=== PATIENT | female | born 1945 | race Caucasian/White ===

== ENCOUNTER 2020-03-01 09:03 | Outpatient (CLI) | payer MEDICARE, SELFPAY ==
[2020-03-01 09:54] LABS: Hemoglobin A1C 7.2 % (<5.7)
== END 2020-03-01 09:04 | disposition home or self-care (01) ==
LOC: CHSLAB 09:05
PROVIDERS: PCP Family Medicine; Visit Provider Family Medicine
DX: E11.9 Type 2 diabetes mellitus without complications (principal)
CPT/HCPCS: 36415; 83036

== ENCOUNTER 2020-06-28 09:18 | Outpatient (CLI) | payer MEDICARE, SELFPAY ==
--- NOTE | ~2020-06-28 | MM_ITS ---
EXAMINATION: MM screening [facility] BI w emilia HISTORY: Screening mammogram TECHNIQUE: Craniocaudal and mediolateral oblique 3-D tomosynthesis images were obtained and synthetic 2-D images were generated. CAD analysis was submitted and interpreted. COMPARISON: 05/23/2019, 05/19/2019, 05/01/2018 BREAST PARENCHYMAL COMPOSITION: There are scattered areas of fibroglandular density. FINDINGS: There is no evidence of suspicious mass, calcification, or architectural distortion to sugg est malignancy in either breast. There has been no suspicious interval change. IMPRESSION: 1. No mammographic evidence of malignancy. 2. Recommend routine screening mammography in one year. BI-RADS Category 1: Negative Reviewed, dictated and finalized at location A. CONSULTANT
== END 2020-06-28 09:19 | disposition home or self-care (01) ==
PROVIDERS: PCP Family Medicine; Visit Provider Family Medicine
DX: Z12.31 Encounter for screening mammogram for malignant neoplasm of breast (principal)
CPT/HCPCS: 77063; 77067

== ENCOUNTER 2020-12-06 09:15 | Outpatient (CLI) | payer MEDICARE, SELFPAY ==
[2020-12-06 09:45] LABS: Creatinine Urine 242.54 mg/dL (40-278); MALB Creatinine Ratio 8.9 mg/g (0-30); Microalbumin Urine Random 21.7 mg/L
[2020-12-06 09:48] LABS: Hemoglobin A1C 9.7 % (<5.7)
[2020-12-06 10:28] LABS: Alanine Aminotransferase 42 U/L (14-59); Alkaline Phosphatase 96 U/L (46-116); Anion Gap 10 mmol/L (8-16); Aspartate Amino Transferase 20 U/L (15-37); Bilirubin,Total 0.5 mg/dL (0.00-1.00); Blood Urea Nitrogen 20 mg/dL (7-18); Calcium 9.6 mg/dL (8.5-10.1); Carbon Dioxide 30 mmol/L (21-32); Chloride 100 mmol/L (98-108); Cholesterol 211 mg/dL (0-200); Estimated Glomerular Filt Rate 38; Glucose 215 mg/dL (70-99); HDL Direct 41 mg/dL (40-60); LDL Cholesterol Calculated 113 mg/dL (<130); Osmolality Calculated 298 mOsm/kg (285-295); Potassium 4.3 mmol/L (3.5-5.1); Sodium 140 mmol/L (136-145); Total Protein 7.5 g/dL (6.4-8.2); Triglycerides 283 mg/dL (0-150)
== END 2020-12-06 09:16 | disposition home or self-care (01) ==
LOC: CHSLAB 09:20
PROVIDERS: PCP Family Medicine; Visit Provider Family Medicine
DX: E11.9 Type 2 diabetes mellitus without complications (principal)
CPT/HCPCS: 36415; 80053; 80061; 82043; 83036

== ENCOUNTER 2021-05-18 08:03 | Outpatient (CLI) | payer MEDICARE, SELFPAY ==
--- NOTE | ~2021-05-18 | US_ITS ---
US abdomen complete EXAMINATION: US Abdomen Complete INDICATION: Left lower abdominal PROCEDURE: Realtime High Resolution abdomen ultrasound. COMPARISON: No prior studies for comparison FINDINGS: Gallbladder within normal limits. No gallstones, pericholecystic fluid, gallbladder wall t hickening or biliary dilatation. Common bile duct measures 3 mm. Liver echotexture is increased, consistent with fatty infiltration.. Pancreas within normal limits. Pancreatic tail is obscured by bowel gas. Spleen is unremarkeable. Renal echotexture is within norm al limits bilaterally without hydronephrosis, contour deforming mass. There is an echogenic focus alba suring 1.1 x 0.6 cm in the left kidney, consistent with renal stone. No hydronephrosis.. Right kidney measures 9.2 cm. Left kidney measures 9.2 cm. Visualized aspects of the aorta and IVC are within normal limits. Portal vein is patent. No sonograph ic Etienne's sign indicated by the technologist. IMPRESSION: 1: Echogenic focus in the left kidney measuring 11 x 6 mm, consistent with nonobstructing renal stone . 2: Hepatic steatosis. Reviewed, dictated and finalized at location A. AGE WINDER IMPRESSION: 1: Echogenic focus in the left kidney measuring 11 x 6 mm, consistent with nono bstructing renal stone. 2: Hepatic steatosis.
== END 2021-05-18 08:04 | disposition home or self-care (01) ==
LOC: CHSIMG 08:04
PROVIDERS: PCP Family Medicine; Visit Provider Nurse Practitioner Family
DX: R10.32 Left lower quadrant pain (principal)
CPT/HCPCS: 76700

== ENCOUNTER 2021-06-22 14:44 | Outpatient (CLI) | payer MEDICARE, SELFPAY ==
--- NOTE | ~2021-06-22 | XR_ITS ---
XR abdomen/kub 1V DATE: 06/22/2021 15:00 INDICATION: Kidney stone follow-up TECHNIQUE: AP view COMPARISON: 08/17/2011 CT abdomen pelvis FINDINGS: No calcifications are noted overlying the kidneys, ureters or urinary bladder. No evidence of bowel obstruction. The psoas shadows are intact. No visceromegaly is detected. Multilevel degenerative disc disease of the lumbar and lumbosacral spine. Bilateral hip osteoarthriti s, greater on the left. Mild osteitis pubis. IMPRESSION: No urinary tract calcifications are noted Reviewed, dictated and finalized at Location A. Reviewed, dictated and finalized at location A. LIBRARIAN
== END 2021-06-22 14:45 | disposition home or self-care (01) ==
LOC: CHSIMG 14:47
PROVIDERS: PCP Family Medicine; Visit Provider Urology
DX: N20.0 Calculus of kidney (principal)
CPT/HCPCS: 74018

== ENCOUNTER 2021-07-07 08:34 | Outpatient (CLI) | payer MEDICARE, SELFPAY ==
--- NOTE | ~2021-07-07 | CT_ITS ---
EXAMINATION: CT abdomen pelvis wo con DATE: 07/07/2021 08:58 INDICATION: Left lower quadrant and groin pain TECHNIQUE: Computed tomography (CT) of the abdomen and pelvis was performed without intravenous contr ast. Automated exposure control and iterative reconstruction technique were employed. Exam dose: 520 .51 mGy-cm total exam DLP. COMPARISON: 06/22/2021 KUB 05/18/2021 complete abdominal ultrasound examination FINDINGS: The lung bases are clear. Normal heart size. No pericardial or pleural effusion. There is hepatic steatosis. No hepatic, splenic, pancreatic, adrenal space-occupying mass lesion is e vident. The gallbladder is present. No gallbladder wall thickening or pericholecystic fluid or fat st randing. No bile duct or pancreatic duct dilatation. 1.4 cm partially exophytic anterior upper pole left renal probable cyst. No renal mass lesion is note d otherwise on this limited noncontrast examination. No urinary tract calculus or hydroureteronephros is. The urinary bladder is unremarkable. Status post hysterectomy. There is atherosclerotic calcification but normal caliber of the abdominal aorta. No intraperitoneal or retroperitoneal or pelvic mass lesion or adenopathy or ascites. There are numerous diverticula scattered throughout the left and right colon; no CT evidence of diver ticulitis Status post appendectomy. No bowel obstruction, bowel wall thickening, pneumatosis or intraperitoneal free air is evident. Small fat-containing umbilical hernia. There is severe degenerative disc disease and mild retrolisthesis at L1-2. Moderately severe degenerative disc disease at L2-3. Moderately severe degenerative disc disease at L4-5. There is prominent degenerative change at the ap ophyseal joints with associated grade 1 anterolisthesis at L4-5. Severe degenerative disc disease at L5-S1. Bilateral hip osteoarthritis. No suspicious osteolytic or osteoblastic lesions are noted. IMPRESSION: Hepatic steatosis 1.4 cm left renal cyst Diverticulosis throughout the left and right colon; no CT evidence of diverticulitis Status post appendectomy Status post hysterectomy Reviewed, dictated and finalized at Location A. Reviewed, dictated and finalized at location A. 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
[2021-07-07 09:01] LABS: Alanine Aminotransferase 47 U/L (14-59); Alkaline Phosphatase 97 U/L (46-116); Anion Gap 7 mmol/L (8-16); Aspartate Amino Transferase 21 U/L (15-37); Bilirubin,Total 0.4 mg/dL (0.00-1.00); Blood Urea Nitrogen 28 mg/dL (7-18); Calcium 9.9 mg/dL (8.5-10.1); Carbon Dioxide 31 mmol/L (21-32); Chloride 100 mmol/L (98-108); Estimated Glomerular Filt Rate 36; Glucose 103 mg/dL (70-99); Osmolality Calculated 291 mOsm/kg (285-295); Potassium 4.1 mmol/L (3.5-5.1); Sodium 138 mmol/L (136-145); Total Protein 7.9 g/dL (6.4-8.2); Uric Acid 5.8 mg/dL (2.6-6.0)
== END 2021-07-07 08:35 | disposition home or self-care (01) ==
PROVIDERS: PCP Family Medicine; Visit Provider Urology
DX: N20.0 Calculus of kidney (principal)
CPT/HCPCS: 36415; 74176; 80053; 84550

== ENCOUNTER 2021-08-01 10:09 | Outpatient (CLI) | payer MEDICARE, SELFPAY ==
--- NOTE | ~2021-08-01 | MM_ITS ---
EXAMINATION: MM screening [facility] BI w emilia HISTORY: Screening TECHNIQUE: Craniocaudal and mediolateral oblique 3-D tomosynthesis images were obtained and synthetic 2-D images were generated. CAD analysis was submitted and interpreted. COMPARISON: Comparison to multiple prior studies sequentially, with oldest reviewed study dated 03/29. BREAST PARENCHYMAL COMPOSITION: Breast composed of scattered areas of fibroglandular density FINDINGS: Stable bilateral breast calcifications and nodular densities. There is no evidence of suspi cious mass, calcification, or architectural distortion to suggest malignancy in either breast. There has been no suspicious interval change. IMPRESSION: 1. No mammographic evidence of malignancy. 2. Recommend routine screening mammography in one year. BI-RADS Category 2: Benign finding(s). Reviewed, dictated and finalized at location A. SSAYIST
== END 2021-08-01 10:10 | disposition home or self-care (01) ==
LOC: CHSIMG 10:10
PROVIDERS: PCP Family Medicine; Visit Provider Family Medicine
DX: Z12.31 Encounter for screening mammogram for malignant neoplasm of breast (principal)
CPT/HCPCS: 77063; 77067

== ENCOUNTER 2022-01-04 18:40 | Emergency (ER) | payer MEDICARE, SELFPAY ==
--- NOTE | ~2022-01-04 | XR_ITS ---
EXAM: XR hip LT 2V w AP pelvis DATE: 01/04/2022 19:16 HISTORY: LT hip pain with limited movement NKI . COMPARISON: 05/16/2011. FINDINGS: Decreased mineralization. No fracture or dislocation. No lytic or blastic lesion. Degenera tive changes in the lower lumbar spine. Moderate left hip osteoarthritis. Moderate osteitis pubis. No erosion or periosteal change. Soft tissues within normal limits. IMPRESSION: No acute osseous finding in the pelvis or left hip. Reviewed, dictated and finalized at location K.
[2022-01-04 18:45] VITALS: BP 145/78; PULSE 91; RESP 18; TEMP 36.9; O2SAT 98
--- NOTE | 2022-01-04 18:55 | ED.LOWEXIN ---
HPI - Extremity Injury (Lower) General Chief Complaint: Extremity Problem,Nontraumatic Stated Complaint: L hip pain Time Seen by Provider: 01/04/22 18:55 Source: patient History of Present Illness HPI Narrative: 76-year-old female with a history of hypertension, diabetes mellitus, dyslipidemia presents to the ER with -- left hip pain. no trauma to left hip. She has bilateral hip pains. She has taken ibuprofen, diclofenac without any improvement. Presently the patient is unable to bear weight. Onset (ago): day(s) Injury: Left: hip Severity: severe Relieving factors: immobilization Exacerbating factors: movement Related Data Allergies Allergy/AdvReac Type Severity Reaction Status Date / Time metronidazole Allergy Unknown Unknown Verified 12/05/21 13:55 pioglitazone [From Actos] AdvReac Severe Swelling Verified 12/05/21 13:55 Review of Systems Review of Systems: All systems reviewed & are unremarkable except as noted in HPI and below Constitutional: Constitutional: Reports as per HPI and Reports no additional constitutional complaints Eyes: Eyes: Reports as per HPI and Reports no additional eye complaints ENT: Reports system reviewed and no additional complaints, except as documented and Reports as per HPI Cardiovascular: Cardiovascular: Reports as per HPI and Reports no additional cardiovascular complaints Respiratory: Respiratory: Reports as per HPI and Reports no additional respiratory complaints Gastrointestinal: Gastrointestinal: Reports as per HPI and Reports no additional gastrointestinal complaints Genitourinary: Genitourinary: Reports no additional female genitourinary complaints and Reports as per HPI Musculoskeletal: Musculoskeletal: Reports no additional musculoskeletal complaints and Reports as per HPI Comments: chronic bilateral hip pain. Currently she has left hip pain Integumentary/Breasts: Skin/Breast: Reports system reviewed and no additional complaints, except as docu and Reports as per HPI Neurologic: Reports system reviewed and no additional complaints, except as documented and Reports as per HPI Psychiatric: Psychiatric: Reports no additional psychiatric complaints and Reports as per HPI Endocrine: Endocrine: Reports no additional endocrine complaints and Reports as per HPI Hematologic/Lymphatic: Hematologic/Lymphatic: Reports no additional hematologic/lymphatic complaints and Reports as per HPI Allergic/Immunologic: Allergic/Immunologic: Reports no additional allergic/immunologic complaints and Reports as per HPI PMF Past Medical History Medical History (Updated 01/04/22 @ 19:38 by Beau Correa MD) Arthritis DM2 (diabetes mellitus, type 2) Hyperlipidemia Hypertension Overweight Surgical History Surgical History History of appendectomy History of hysterectomy Age 43 Family History Family History Mother Hypertension Diabetes mellitus CHF (congestive heart failure) Father , Age 69 Pancreatitis Social History Social History Smoking status: Never smoker Alcohol intake: never Substance use: never Additional living arrangements comments: . No children. Additional occupation/education comments: Prior Occupation: [employer] Exam Const: General: healthy appearing and no acute distress Nutritional Appearance: well nourished Orientation/consciousness: patient oriented x3 Limitations: no limitations HENMT: Head: normal to inspection Ears: external ears normal General nose exam: Normal external nose present Face and sinus: normal facial exam Mouth: Yes Normal oral and palatal mucosa present Throat: posterior oropharynx normal Eyes: Conjunctivae: conjunctivae normal Pupils: Equal, round and reactive pupils present EOM: EOMs intact bilaterally Direct Ophthalmoscopy
--- NOTE | 2022-01-04 19:08 | PC.NURSE ---
pt report to obinna donnelly. no questions or concerns
[2022-01-04] MEDS: ONDANSETRON HCL ODT 4 MG TABLET PO (19:44)
[2022-01-04] MEDS: HYDROmorphone HCL INJ (*CRX) 2 MG/ML VIAL 1 MG SUB-Q (19:44)
[2022-01-04] MEDS: methylPREDNISolone ACETATE 40 MG/ML VIAL IM (19:45)
[2022-01-04 20:00] VITALS: BP 109/80; PULSE 87; RESP 18; O2SAT 97
== END 2022-01-04 20:02 | disposition home or self-care (01) ==
PROVIDERS: Emergency Provider Internal Medicine Critical Care Medicine; PCP Family Medicine
DX: M16.12 Unilateral primary osteoarthritis, left hip (principal)
CPT/HCPCS: 73502; 96372; 99284; A9270; J1030; J1170

== ENCOUNTER 2022-01-17 09:23 | Outpatient (CLI) | payer MEDICARE, SELFPAY ==
[2022-01-17 10:08] LABS: Alanine Aminotransferase 57 U/L (14-59); Albumin Level 3.6 g/dL (3.4-5.0); Alkaline Phosphatase 232 U/L (46-116); Anion Gap 10 mmol/L (8-16); Aspartate Amino Transferase 26 U/L (15-37); Bilirubin,Total 0.5 mg/dL (0.00-1.00); Blood Urea Nitrogen 38 mg/dL (7-18); Calcium 9.1 mg/dL (8.5-10.1); Carbon Dioxide 25 mmol/L (21-32); Chloride 101 mmol/L (98-108); Estimated Glomerular Filt Rate 37; Glucose 105 mg/dL (70-99); Osmolality Calculated 291 mOsm/kg (285-295); Potassium 4.1 mmol/L (3.5-5.1); Sodium 136 mmol/L (136-145)
== END 2022-01-17 09:24 | disposition home or self-care (01) ==
LOC: CHSLAB 09:25
PROVIDERS: PCP Family Medicine; Visit Provider Nurse Practitioner Family
DX: E11.9 Type 2 diabetes mellitus without complications (principal); I10 Essential (primary) hypertension
CPT/HCPCS: 36415; 80053

== ENCOUNTER 2022-01-23 08:18 | Outpatient (CLI) | payer MEDICARE, SELFPAY ==
[2022-01-23 08:46] LABS: Alanine Aminotransferase 48 U/L (14-59); Albumin Level 3.8 g/dL (3.4-5.0); Alkaline Phosphatase 262 U/L (46-116); Anion Gap 7 mmol/L (8-16); Aspartate Amino Transferase 24 U/L (15-37); Bilirubin,Total 0.3 mg/dL (0.00-1.00); Blood Urea Nitrogen 16 mg/dL (7-18); Calcium 9.4 mg/dL (8.5-10.1); Carbon Dioxide 27 mmol/L (21-32); Chloride 101 mmol/L (98-108); Estimated Glomerular Filt Rate 40; Glucose 115 mg/dL (70-99); Osmolality Calculated 282 mOsm/kg (285-295); Potassium 4.1 mmol/L (3.5-5.1); Sodium 135 mmol/L (136-145); Total Protein 7.2 g/dL (6.4-8.2)
== END 2022-01-23 08:19 | disposition home or self-care (01) ==
LOC: CHSLAB 08:20
PROVIDERS: PCP Family Medicine; Visit Provider Family Medicine
DX: E11.9 Type 2 diabetes mellitus without complications (principal)
CPT/HCPCS: 36415; 80053

== ENCOUNTER 2022-02-09 09:53 | Outpatient (CLI) | payer MEDICARE, SELFPAY ==
--- NOTE | 2022-02-09 10:48 | ECG_ITS ---
Measurements Intervals [place] Rate: 82 P: 53 NH: 123 QRS: -55 QRSD: 118 T: 12 QT: 366 QTc: 429 Interpretive Statements SINUS RHYTHM INDETERMINATE AXIS LOW QRS VOLTAGE IN PRECORDIAL LEADS RIGHT BUNDLE BRANCH BLOCK LEFT ANTERIOR FASCICULAR BLOCK BASELINE ARTIFACT- I, II, III, AVR, AVL, AVF, V4-V5 ABNORMAL ECG NO PREVIOUS ECG AVAILABLE FOR COMPARISON Electronically Signed On 02-09-2022 11:12:35 CDT by Home Alcaraz D.O.
[2022-02-09 11:10] LABS: Appearance Urine Cloudy (Clear); Bilirubin Urine Negative (Negative); Blood Urine 2+ (Negative); Color Urine Yellow (Yellow); Glucose Urine UA Negative (Negative); Ketones Urine Negative (Negative); Leukocyte Esterase Ur 2+ LEU/UL (Negative); Nitrate Urine Negative (Negative); Protein Urine 2+ mg/dL (Negative); Specific Grav Ur 1.025 (1.001-1.035); Urobilinogen Urine 0.2 mg/dL (<2.0); pH Urine 5.5 (5.0-9.0)
[2022-02-09 11:10] LABS: Basophils Absolute Auto 0.1 K/mm3 (0.0-0.1); Basophils Percent Auto 0.7 % (0.2-1.2); Eosinophils Absolute Auto 0.1 K/mm3 (0-0.3); Hematocrit 41.1 % (37.0-47.0); Hemoglobin 13.6 g/dL (12.0-15.0); Immature Granulocyte Absolute 0.03 K/mm3 (0.00-0.031); Immature Granulocyte Percent A 0.4 % (0-0.5); Lymphocytes Percent Auto 11.3 % (18.3-44.2); Mean Corpuscular HGB Conc 33.1 g/dl (32-36); Mean Corpuscular Hemoglobin 28.9 pg (26-34); Mean Corpuscular Volume 87.4 fl (80-100); Mean Platelet Volume 8.9 fl (7.4-10.4); Monocytes Absolute Auto 0.4 K/mm3 (0.1-0.6); Monocytes Percent Auto 6.2 % (2.6-8.5); Neutrophils Absolute Auto 5.7 K/mm3 (1.3-6.7); Neutrophils Percent Auto 80.4 % (45.5-73.1); Platelet Count Result 306 k/mm3 (150-375); Red Cell Distribution Width 13.2 % (11.5-14.5); White Blood Count 7.1 K/mm3 (4.5-10.0)
[2022-02-09 11:15] LABS: Mucus Urine Rare /lpf; RBC Urine 21-50 /hpf (0-2); Squamous Epithelial Cell Urine Moderate /hpf (Few); WBC Urine >75 /hpf
[2022-02-09 11:21] LABS: Prothrombin Time 12.8 Seconds (11.1-14.7)
[2022-02-09 11:22] LABS: Partial Thromboplastin Time 28.8 SECONDS (22.3-36.8)
[2022-02-09 11:35] LABS: Add Urine Microscopic? YES
[2022-02-09 12:10] LABS: Urine Cotinine NEGATIVE
== END 2022-02-09 09:54 | disposition home or self-care (01) ==
LOC: ANHSURGERY 10:01
PROVIDERS: PCP Family Medicine; Visit Provider Orthopaedic Surgery
DX: Z01.818 Encounter for other preprocedural examination (principal); M16.12 Unilateral primary osteoarthritis, left hip; R94.31 Abnormal electrocardiogram [ECG] [EKG]
CPT/HCPCS: 80307; 81001; 85025; 85610; 85730; 86850; 86900; 86901; 87077; 87081; 87086; 87186; 93005

== ENCOUNTER 2022-02-15 15:15 | Inpatient (IN) | payer MEDICARE, SELFPAY ==
[2022-02-09 10:07] VITALS: BMI 30.4
--- NOTE | 2022-02-09 10:26 | PC.NURSE ---
Report to the Outpatient Waiting Room, entrance under the green pavilion located off [facility], at time __0600 on date __02/14/22 . OR Time: __729 . Time changes happen often and if your time is changed the preop area will call you the afternoon before. - You and your visitor will be asked to self-screen and do not enter if you have any COVID symptoms. - Only one visitor and NO children visitors are allowed at this time. - The patient visitor is requested to leave or wait in car when not with patient due to restrictions. - A mask is required within the hospital. Patients may have clear liquids (water, carbonated beverages, clear teas, apple juice) until 3 hours prior to surgery with a maximum of 20 ounces. - No food from midnight until time of surgery - Infants may have breast milk until 4 hours before surgery, formula 6 hours prior to surgery. - Children will be allowed to drink immediately following surgery. If applicable, please bring a bottle or sippy cup to assist with drinking. Juice, water, soda, and popsicles are readily available. For infants on formula, please bring formula the day of surgery. Pacifiers are allowed. Take the following medications with a SIP of water the morning of surgery: ____NONE Medications to discontinue per physician NONE Date to take last dose Please no make-up, nail hungarian, hairspray, perfume, deodorant, or body powder the day of surgery. No jewelry (including any body piercings) or valuables the day of surgery, leave them at home. Please take a shower or bath the night before, or the morning of, surgery with an antibacterial soap. Wear comfortable, loose fitting clothing. Children are encouraged to wear pajamas. - Jewelry must be removed prior to entering the operating room. Rings and piercings that are not removed may be cut off. - The hospital will not accept responsibility for valuables. - Please leave all valuables, including medications, at home the day of surgery. If you are going home after surgery, a licensed commercial truck driver must drive you home. - NO public transportation without another adult. - We recommend that an adult stay with you for 24 hours following discharge. - We also recommend that you do not drive, make important decision, drink alcoholic beverages, or take any drugs that were not prescribed by your health care provider for at least 24 hours after your discharge time. For Pediatric surgeries, we recommend two adults accompany the child home (only one inside the building at this time). Follow any additional instructions given to you from your surgeon. If you or anyone in your household have experienced Covid symptoms in the past week, please notify your surgeon or the nurse liaison at the phone number below for possible testing. VERBAL AND WRITTEN instructions given to _PATIENT AND SISTER IN LAW VIKA and asked if any additional questions and then verbalized understanding. Patient advised to call surgeon office or pre surgery nurse liaison [phone] if any additional questions.
[2022-02-09 10:52] VITALS: BP 130/70; PULSE 89; RESP 18; TEMP 36.8; O2SAT 99
--- NOTE | 2022-02-13 14:25 | P.PNAN_ITS ---
Anes - Initial Pre Proc Eval Procedure: Operation Date: 02/14/22 07:30 Proposed Procedures p Left Total Hip Arthroplasty - Ismael Calero MD Date/Time: 02/13/22 14:25 Surgeon: Ismael Calero MD Pre Op Diagnosis: left hip DJD Patient Data Age: 76 Gender: F Height: 1.55 m Weight: 73.2 kg Last Vital Signs Temp 98.3 F 02/09/22 10:52 Pulse 89 02/09/22 10:52 Resp 18 02/09/22 10:52 BP 130/70 02/09/22 10:52 Pulse Ox 99 02/09/22 10:52 O2 Del Method Room Air 02/09/22 10:52 Allergies Allergy/AdvReac Type Severity Reaction Status Date / Time metronidazole Allergy Unknown Unknown Verified 02/09/22 10:08 pioglitazone [From Actos] AdvReac Severe Swelling Verified 02/09/22 10:08 Home Medications Medication Instructions Recorded Confirmed Type lisinopril 20 mg tablet See Rx Instructions .Route 08/15/21 02/09/22 Rx .COMPLEX #90 tabs metformin 1,000 mg tablet 1,000 mg PO BID #180 tabs 09/27/21 02/09/22 Rx acetaminophen 500 mg tablet 500 mg PO Q6H PRN Pain 02/09/22 02/09/22 History (Tylenol Extra Strength) aluminum-mag hydroxide-simethicone 10 ml PO PRN PRN Heartburn 02/09/22 02/09/22 History 200 mg-200 mg-20 mg/5 mL oral susp levofloxacin 500 mg tablet 500 mg PO DAILY 10 days #10 tabs 02/13/22 Rx Patient hx anesthesia problems: none Family hx anesthesia problems: none Results Review: All pre-operative results and documents have been reviewed as part of the pre- operative evaluation. [facility] Past Medical History Medical History Arthritis DM2 (diabetes mellitus, type 2) Hyperlipidemia Hypertension Overweight Surgical History Surgical History History of appendectomy History of hysterectomy Age 43 Family History Family History Mother Hypertension Diabetes mellitus CHF (congestive heart failure) Father , Age 69 Pancreatitis Social History Social History Smoking status: Never smoker Additional smoking assessment comments: DENIES ANY FORM OF TOBACCO USE Alcohol intake: never Substance use: never Living arrangements: alone Additional living arrangements comments: . No children. Additional occupation/education comments: Prior Occupation: [employer] Spiritual care concerns: No Anes - Eval Final PreProcedure Day of Procedure 02/13/22 14:25 Patient weight: obese Heart: regular rate and rhythm Lungs: clear to auscultation Airway: Mallampati scale class II Neurological: alert and oriented Last oral intake: >/= 8 hours ASA classification: III Emergent: no Anesthetic plan: proceed Anesthesia type and monitoring: general ETT and standard monitoring Results Review: All pre-operative results and documents have been reviewed as part of the pre- operative evaluation. Informed Consent: The patient's anesthetic plan and its attendant risks and benefits were discussed with the patient/family/POA. Questions were solicited and answers provided to the satisfaction of the patient/family/POA.
[2022-02-14] VITALS (17 sets, daily range): BP systolic 107–153; BP diastolic 50–74; PULSE 79–99; RESP 16–20; TEMP 35.6–36.7; O2SAT 94–100
[2022-02-14] MEDS: ACETAMINOPHEN 500 MG TABLET 1000 MG PO (06:33)
[2022-02-14] MEDS: TRANEXAMIC ACID 1,000MG/ISO100 1,000 MG/100 ML BAG 200 MG IVPB (06:36)
[2022-02-14] MEDS: LACTATED RINGERS 1,000 ML 30 ML IV CONT ×2 (06:40→10:18)
[2022-02-14 06:55] LABS: Glucose Point of Care 90 mg/dl (65-105)
--- NOTE | 2022-02-14 07:14 | WPDHPUPDATE1 ---
History and Physical Update Update Date/Time: 02/14/22 07:14 History and Physical has been reviewed, including an updated exam of the patient. There are NO changes in the patient's condition. Risks, benefits, and alternatives have been discussed and questions answered. Patient agrees to proceed with procedure.
[2022-02-14] MEDS: ceFAZolin 2 GM/D5W 50 ML 2 GM/50 ML BAG IVPB ×2 (07:27→16:43)
[2022-02-14] MEDS: TRANEXAMIC ACID 1,000 MG/10 ML AMPUL 1000 MG IV PUSH (09:55)
[2022-02-14 10:21] LABS: Glucose Point of Care 136 mg/dl (65-105)
--- NOTE | 2022-02-14 10:31 | W.PM.PROC2 ---
Procedure Note - Detailed Date of Procedure 02/14/22 Pre-op Diagnosis left hip DJD Post-op Diagnosis Same Procedure Performed L NEMO Surgeon Ismael Calero MD Anesthesia General Description of Procedure THE PATIENT WAS TAKEN TO THE OPERATING ROOM IN STABLE CONDITION AND WAS PLACED IN THE LATERAL DECUBITUS AND THE LEFT LOWER EXTREMITY WAS PREPPED AND DRAPED IN THE STERILE FASHION. INCISION WAS MADE IN THE POSTERIOR LATERAL SIDE OF THE HIP, DOWN TO THE FASCIA LAYER. THE FASCIA WAS INCISED. THE HIP WAS EXPOSED. THE SHORT EXTERNAL ROTATORS WERE EXPOSED. THE SCIATIC NERVE WAS IDENTIFIED. INCISION WAS MADE THROUGH THE SHORT EXTERNAL ROTATORS AND THE CAPSULE OF THE HIP JOINT. THE HIP WAS DISLOCATED. AN OSTEOTOMY WAS MADE TO THE FEMORAL NECK ABOUT 1 CM PROXIMAL TO THE LESSER TROCHANTER. THE ACETABULUM WAS EXPOSED. THERE WAS SEVERE DJD SEEN. BEGINNING WITH A 44 REAMER THE ACETABULUM WAS REAMED TO 49 MM. A 50 MM TRIAL WAS PLACED IN 35 DEG OF ABDUCTION AND ANTEVERSION WAS IN ALIGNMENT WITH THE TRANS ACETABULAR LIGAMENT. THE FIT WAS EXCELLENT. THE TRIAL WAS REMOVED. A 50 MM BIOMET G7 COMPONENT WAS THEN TAPPED IN TO PLACE IN 35 DEG OF ABDUCTION AND ANTEVERSION IN ALIGNMENT WITH THE TRANSVERSE ACETABULAR LIGAMENT. 2 SCREWS WERE PLACED. THE COMPONENT WAS VERY STABLE. THE ACETABULAR LINER WAS PLACED AND CHECKED FOR STABILITY. NEXT THE FEMUR WAS PREPARED WITH INITIAL CANAL FINDER THEN SEQUENTIAL BROACHING WITH A TAPERLOC HIP SYSTEM, UNTIL A 9 BROACH FIT WELL IN 15 OF ANTEVERSION. A -3 HIGH OFFSET NECK WITH 36 MM HEAD TRIAL WAS PLACED. THE SHUCK TEST WAS EXCELLENT AND THE STABILITY IN FLEXION AND ROTATION WAS EXCELLENT. LEG LENGTHS WERE GROSSLY EQUAL. TRIALS WERE REMOVED. A BIOMET TAPERLOC 9 STEM WAS PLACED WITH A HIGH OFFSET NECK THE FIT WAS EXCELLENT IN 15 DEG OF ANTEVERSION. A -3 CERAMIC 36 MM FEMORAL CERAMIC HEAD WAS PLACED. THE HIP WAS TRIALED AND THE STABILITY WAS EXCELLENT WERE THE LEG LENGTHS AND THE SHUCK TEST. THE WOUND WAS IRRIGATED WITH STERILE BETADINE AND WATER FOR 3 MIN. THEN WASHED AGAIN. THE CAPSULE AND THE EXTERNAL ROTATORS WERE APPROXIMATED WITH NUMBER 1 VICRYL. THE FASCIA WITH No 2 QUIL AND THE SUB CUTANEOUS LAYER WITH 2-0 ABSORBABLE SUTURE WITH A RUNNING 3-0 SUBCUTICULAR LAYER WELL. DERMABOND WAS PLACED AND STERILE DRESSING WAS APPLIED. PATIENT WAS PLACED BACK ON TO THE SUPINE POSITION AND WAS EXTUBATED Estimated Blood Loss -100.0 Complications No immediate complications Condition Stable Disposition PACU
--- NOTE | 2022-02-14 11:22 | SUR.PHASEI ---
1120 PT MEETS ANESTHESIA DISCHARGE CRITERIA. POST OP ROOM NOT AVAILABLE- ON HOLD IN THE PACU.
--- NOTE | 2022-02-14 12:40 | ADMGEN ---
This patient, Marcy Peña, was admitted to 3 [facility] Surg Room 319-01 at 1235. Patient/family oriented to hospital policies and general routines including ID bracelet, bed and alarms, visiting hours, pain management, procedures, bathroom and other care routines, personal items, smoking policy, room service/diet, and visiting hours. Information on how to activate the Rapid Response Team has been discussed. Patient/Family are encouraged to report perceived risks to care and to ask questions if they do not understand what they are told or what they should do.
[2022-02-14] MEDS: SODIUM CHLORIDE 0.9% IV 1,000 ML 125 ML IV CONT ×2 (12:54→20:25)
[2022-02-14] MEDS: ONDANSETRON INJ 4 MG/2 ML VIAL IV PUSH ×2 (12:59→17:26)
[2022-02-14] MEDS: lisinopriL 20 MG TABLET BY MOUTH (14:56)
[2022-02-14 16:20] LABS: Glucose Point of Care 237 mg/dl (65-105)
[2022-02-14] MEDS: SENNA/DOCUSATE SODIUM TABLET 2 TAB PO (16:42)
[2022-02-14] MEDS: metFORMIN HCL 500 MG TABLET 1000 MG PO (16:42)
--- NOTE | 2022-02-14 17:28 | PC.NURSE ---
this nurse told pt that accu check was a little high. pt did have a clear soda from therapy due to have nausea. pt states i do not take insulin and i do not want it. pt did not take metformin this morning due to surgery, will resume per orders.
[2022-02-14 20:25] LABS: Glucose Point of Care 182 mg/dl (65-105)
[2022-02-15] VITALS (8 sets, daily range): BP systolic 105–135; BP diastolic 58–78; PULSE 78–91; RESP 16–18; TEMP 35.9–36.9; O2SAT 100
--- NOTE | ~2022-02-15 | XR_ITS ---
XR hip LT 1V DATE: 02/14/2022 10:29 INDICATION: Left total hip replacement, postoperative examination TECHNIQUE: Single portable AP postoperative view COMPARISON: None FINDINGS: Status post resection of left femoral head and neck and left total hip arthroplasty. No fracture or dislocation, periosteal reaction or bone destruction. There is slight expected postope rative subcutaneous emphysema. No abnormal radiopaque foreign bodies are noted. There is mild rotatory dextroscoliosis and multilevel degenerative disc disease of the lumbar spine. IMPRESSION: Postoperative unremarkable radiographic examination following left total hip arthroplasty Reviewed, dictated and finalized at location B.
--- NOTE | ~2022-02-15 | US_ITS ---
EXAMINATION: US renal BI DATE: 02/15/2022 16:30 INDICATION: intrinsic renal disease w/ CKD stage 3 TECHNIQUE: Multiple grayscale and Doppler ultrasound images of the kidneys were obtained. COMPARISON: 05/18/21, CT 07/07/21. FINDINGS: Echogenic liver. The right kidney measures 10.1 x 5.1 x 4.3 cm. The left kidney measures 8.2 x 4.0 x 4.1 cm. The kidneys demonstrate normal parenchymal echogenicity. Mild cortical thinning and lobulatio n. Anechoic, circumscribed left upper pole cyst. Echogenic shadowing foci in the right midpole with c linical artifact, likely stone. There is no hydronephrosis. The bladder is normal. IMPRESSION: Mild cortical atrophy. Nonobstructive right midpole nephroliths. Simple left upper pole cyst. Echogen ic liver, most commonly due to steatosis but also can be seen with hepatitis and fibrosis. Reviewed, dictated and finalized at location K. IMPRESSION: Mild cortical atrophy. Nonobstructive right midpole nephroliths. Simple left up per pole cyst. Echogenic liver, most commonly due to steatosis but also can be seen with hepatitis and fibrosis.
[2022-02-15] MEDS: ceFAZolin 2 GM/D5W 50 ML 2 GM/50 ML BAG IVPB ×2 (00:05→08:32)
[2022-02-15] MEDS: ONDANSETRON INJ 4 MG/2 ML VIAL IV PUSH (02:11)
[2022-02-15] MEDS: SODIUM CHLORIDE 0.9% IV 1,000 ML 125 ML IV CONT (05:16)
[2022-02-15 06:47] LABS: Basophils Percent Auto 0.1 % (0.2-1.2); Hemoglobin 9.7 g/dL (12.0-15.0); Immature Granulocyte Absolute 0.06 K/mm3 (0.00-0.031); Immature Granulocyte Percent A 0.5 % (0-0.5); Lymphocytes Absolute Auto 0.36 K/mm3 (0.9-3.2); Mean Corpuscular HGB Conc 33.4 g/dl (32-36); Mean Corpuscular Volume 86.8 fl (80-100); Mean Platelet Volume 9.3 fl (7.4-10.4); Monocytes Absolute Auto 0.8 K/mm3 (0.1-0.6); Monocytes Percent Auto 6.4 % (2.6-8.5); Neutrophils Absolute Auto 10.8 K/mm3 (1.3-6.7); Platelet Count Result 221 k/mm3 (150-375); Red Blood Count 3.34 M/mm3 (4.2-5.4); Red Cell Distribution Width 13.3 % (11.5-14.5)
[2022-02-15 07:02] LABS: Anion Gap 8 mmol/L (8-16); Blood Urea Nitrogen 26 mg/dL (7-17); Calcium 8.4 mg/dL (8.4-10.2); Carbon Dioxide 23 mmol/L (22-30); Chloride 102 mmol/L (98-107); Estimated CRCL calculation 20 ml/min; Estimated Glomerular Filt Rate 24; Glucose 108 mg/dL (65-110); Potassium 5.5 mmol/L (3.4-5.0); Sodium 133 mmol/L (137-145)
--- NOTE | 2022-02-15 07:36 | P.PNAN_ITS ---
Anes - Prog Note Post-Op Date/Time: 02/15/22 07:36 Cardiovascular status: normal Respiratory status: normal Airway patency: baseline Vital Signs: Last Vital Signs Temp 96.9 F L 02/15/22 04:00 Pulse 82 02/15/22 04:00 Resp 17 02/15/22 04:00 BP 135/63 02/15/22 04:00 Pulse Ox 100 02/15/22 04:00 O2 Del Method Room Air 02/14/22 13:50 O2 Flow Rate 6 02/14/22 10:45 Pain Score (VAS): 1-2 I/O: Intake & Output 02/14/22 02/14/22 02/15/22 15:59 23:59 07:59 Intake Total 300 1720 1150 Output Total 600 Balance 300 1720 550 Laboratory Tests 02/15/22 06:21 02/15/22 06:21 02/14/22 02/14/22 02/14/22 10:18 16:06 20:20 WBC RBC Hgb Hct MCV MCH MCHC RDW Plt Count MPV Immature Gran % (Auto) Neut % (Auto) Lymph % (Auto) [place] % (Auto) Eos % (Auto) Baso % (Auto) Lymph # (Auto) [place] # (Auto) Eos # (Auto) Baso # (Auto) Abs Immat Gran (auto) Absolute Neuts (auto) Absolute Nucleated RBC Nucleated RBC % Sodium Potassium Chloride Carbon Dioxide Anion Gap BUN Creatinine Estim Creat Clear Calc Estimated GFR Glucose POC Capillary Glucose 136 H 237 H 182 H Calcium 02/15/22 02/15/22 06:21 06:21 WBC 12.0 H RBC 3.34 L Hgb 9.7 L D Hct 29.0 L MCV 86.8 MCH 29.0 MCHC 33.4 RDW 13.3 Plt Count 221 MPV 9.3 Immature Gran % (Auto) 0.5 Neut % (Auto) 90.0 H Lymph % (Auto) 3.0 L [place] % (Auto) 6.4 Eos % (Auto) 0.0 Baso % (Auto) 0.1 L Lymph # (Auto) 0.36 L [place] # (Auto) 0.8 H Eos # (Auto) 0.0 Baso # (Auto) 0.0 Abs Immat Gran (auto) 0.06 H Absolute Neuts (auto) 10.8 H Absolute Nucleated RBC 0.0 Nucleated RBC % 0.0 Sodium 133 L Potassium 5.5 H Chloride 102 Carbon Dioxide 23 Anion Gap 8 BUN 26 H Creatinine 2.00 H Estim Creat Clear Calc 20 Estimated GFR 24 L Glucose 108 POC Capillary Glucose Calcium 8.4 Patient Feedback: Patient satisfied with anesthetic care.
[2022-02-15 08:27] LABS: Glucose Point of Care 106 mg/dl (65-105)
[2022-02-15] MEDS: lisinopriL 20 MG TABLET BY MOUTH (08:35)
[2022-02-15] MEDS: metFORMIN HCL 500 MG TABLET 1000 MG PO ×2 (08:36→17:02)
[2022-02-15] MEDS: levoFLOXacin 500 MG TABLET PO (08:36)
[2022-02-15] MEDS: CELECOXIB 200 MG CAPSULE PO (08:36)
[2022-02-15] MEDS: polyethylene glycoL 3350 17 GM POWD.PACK PO (08:37)
[2022-02-15] MEDS: SENNA/DOCUSATE SODIUM TABLET 2 TAB PO ×2 (08:37→17:01)
[2022-02-15] MEDS: HYDROcodone/acetaminophen (*CRX) 7.5-325 MG TABLET 1 TAB PO (08:50)
[2022-02-15] MEDS: ASPIRIN 325 MG ENTERIC TABLET 650 MG PO (11:01)
[2022-02-15 11:47] LABS: Glucose Point of Care 113 mg/dl (65-105)
--- NOTE | 2022-02-15 13:52 | PM.PNORT ---
Progress Note: A&P Assessment and Plan (1) S/P total hip arthroplasty: Code(s): Z96.649 - Presence of unspecified artificial hip joint Status: Acute Assessment and Plan: POD 1 WITH SOME SLOW PROGRESS WITH PT. SHE HAS INCREASING BUN/CR AND K+. RECOMMEND INTERNAL MEDICINE CONSULT. POSSIBLE DC TOMORROW Subjective Subjective Date/Time Seen: 02/15/22 13:52 POD 1 DOING WELL. SHE IS HAVING SLOW PROGRESS WITH PT. NO CALF PAIN Exam Extrem: Other: VSS AFEBRILE DRESSING DRY NV INTACT NEG HOMANS SIGN, CALF SOFT NON TENDER Objective Data Vital Signs Vital Signs: Vital Signs - 24 hr 02/14/22 14:30 02/14/22 16:01 02/14/22 20:01 Temperature 35.7 C L 35.6 C L 36.1 C L Pulse Rate 92 91 79 Respiratory Rate 16 18 18 Blood Pressure 133/62 118/57 L 109/59 L Pulse Oximetry 97 99 99 Oxygen Delivery 02/15/22 00:00 02/15/22 04:00 02/15/22 08:30 Temperature 35.9 C L 36.1 C L 36.1 C L Pulse Rate 83 82 91 Respiratory Rate 18 17 16 Blood Pressure 133/65 135/63 120/68 Pulse Oximetry 100 100 100 Oxygen Delivery 02/15/22 08:35 Temperature Pulse Rate Respiratory Rate Blood Pressure Pulse Oximetry Oxygen Delivery Room Air Intake/Output Intake/Output: Intake & Output 02/12/22 02/13/22 02/14/22 02/15/22 23:59 23:59 23:59 23:59 Intake Total 2019 1929 Output Total 600 Balance 2019 1330 Meds/Results Medications: Active Medications Generic Name Dose Route Start Last Admin Trade Name Freq PRN Reason Stop Dose Admin Acetaminophen 500 mg 02/14/22 12:25 Acetaminophen 500 Mg Tablet PO Q6H PRN Pain 1-3 Hydrocodone Bitart/Acetaminophen 1 tab 02/14/22 12:25 02/15/22 08:50 Hydrocodone/Acetaminophen (*Crx) 7.5-325 Mg Tablet PO 1 tab Q3H PRN Administration Pain Rated 4-6 Al Hydrox/Mg Hydrox/Simethicone 10 ml 02/14/22 12:25 Mag Hydrox/Al Hydrox/Simeth 30 Ml Udc PO PRN PRN Heartburn Aspirin 650 mg 02/15/22 09:00 09/21/22 11:01 Aspirin 325 Mg Enteric Tablet PO 650 mg DAILY MARTIN Administration Celecoxib 200 mg 02/15/22 09:00 02/15/22 08:36 Celecoxib 200 Mg Capsule PO 200 mg DAILY MARTIN Administration Diazepam 5 mg 02/14/22 12:25 Diazepam (*Crx) 5 Mg Tablet PO Q6H PRN Anxiety/Muscle Spasm Hydroxyzine HCl 50 mg 02/14/22 12:25 Hydroxyzine Hcl 25 Mg Tablet PO Q4H PRN Itching Levofloxacin 500 mg 02/15/22 09:00 02/15/22 08:36 Levofloxacin 500 Mg Tablet PO 02/23/22 09:01 500 mg DAILY MARTIN Administration Lisinopril 20 mg 02/14/22 13:00 02/15/22 08:35 Lisinopril 20 Mg Tablet BY MOUTH 20 mg DAILY MARTIN Administration Metformin HCl 1,000 mg 02/14/22 17:00 02/15/22 08:36 Metformin Hcl 500 Mg Tablet PO 1,000 mg BID MARTIN Administration Morphine Sulfate 3 mg 02/14/22 12:25 Morphine Sulfate (*Crx) 4 Mg/Ml Inj IV PUSH Q3H PRN Pain Rated 7-10 Naloxone HCl 0.1 mg 02/14/22 12:25 Naloxone Hcl 0.4 Mg/Ml Vial IV PUSH Q2M PRN Opiate Reversal Ondansetron HCl 4 mg 02/14/22 12:25 02/15/22 02:11 Ondansetron Inj 4 Mg/2 Ml Vial IV PUSH 4 mg Q4H PRN Administration Nausea And Vomiting Polyethylene Glycol 17 gm 02/15/22 09:00 02/15/22 08:37 Polyethylene Glycol 3350 17 Gm Powd.Pack PO 17 gm QAM MARTIN Administration Senna/Docusate Sodium 2 tab 02/14/22 17:00 02/15/22 08:37 Senna/Docusate Sodium Tablet PO 2 tab BID MARTIN Administration Radiology Results: ITS Impressions Hip X-Ray 02/14/22 10:36 IMPRESSION: Postoperative unremarkable radiographic examination following left total hip arthroplasty Labs Labs: Laboratory Results - last 24 hr 02/14/22 02/14/22 02/15/22 16:06 20:20 06:21 WBC 12.0 H RBC 3.34 L Hgb 9.7 L D Hct 29.0 L MCV 86.8 MCH 29.0 MCHC 33.4 RDW 13.3 Plt Count 221 MPV 9.3 Immature Gran % (Auto) 0.5 Neut % (Auto) 90.0 H Lymph % (Auto)
[2022-02-15] MEDS: ALBUTEROL SULFATE NEB 2.5 MG/3 ML INH 5 MG INHALATION (14:56)
[2022-02-15] MEDS: SODIUM POLYSTYRENE SULFONONATE 15 GM/60 ML BTL 30 GM PO (15:39)
[2022-02-15] MEDS: SODIUM CHLORIDE 0.9% IV 500 ML IV CONT (15:40)
[2022-02-15 17:00] LABS: Appearance Urine Clear (Clear); Bilirubin Urine Negative (Negative); Blood Urine Negative (Negative); Color Urine Yellow (Yellow); Glucose Urine UA Negative (Negative); Ketones Urine Negative (Negative); Leukocyte Esterase Ur Negative LEU/UL (NEGATIVE); Nitrate Urine Negative (Negative); Protein Urine Negative (Negative); Specific Grav Ur <= 1.005 (1.001-1.035); Urobilinogen Urine 0.2 mg/dL (<2.0); pH Urine 5.5 (5.0-9.0)
[2022-02-15 17:01] LABS: Add Urine Microscopic? NO
[2022-02-15 17:05] LABS: Urea Random Urine 271 MG/DL
[2022-02-15 17:06] LABS: Urea Random Urine 281 MG/DL
[2022-02-15 17:08] LABS: Sodium Urine Random 29 meq/L
[2022-02-15 17:17] LABS: Glucose Point of Care 96 mg/dl (65-105)
[2022-02-15 17:54] LABS: Glucose Point of Care 114 mg/dl (65-105)
--- NOTE | 2022-02-15 17:55 | PM.IMCN ---
Assessment and Plan Assessment and plan (1) S/P total hip arthroplasty: Code(s): Z96.649 - Presence of unspecified artificial hip joint Status: Acute Assessment and Plan: - postop care per Dr. Calero - pain management per Dr. Calero - DVT prophylaxis per Dr. Calero. The patient appears to have have SCDs - PT and OT have been ordered by Dr. Calero. - The patient stated that she is getting help from [facility] in her home postoperatively (2) Chronic kidney disease (CKD) stage G3b/A1, moderately decreased glomerular filtration rate (GFR) between 30-44 mL/min/1.73 square meter and albuminuria creatinine ratio less than 30 mg/g: Code(s): N18.32 - Chronic kidney disease, stage 3b Status: Acute Assessment and Plan: - patient has chronic renal disease is slightly worsened from her baseline. She is now 2.0 creatinine from a baseline of 1.31-1.54. - She had a renal ultrasound performed today.Mild cortical atrophy. Nonobstructive right midpole nephroliths. Simple left upper pole cyst. Echogenic liver, most commonly due to steatosis but also can be seen with hepatitis and fibrosis. - She follows nephrology outpatient [facility]. - Avoid NSAID - holding metformin for now. - lisinopril was discontinued as well. (3) DM2 (diabetes mellitus, type 2): Code(s): E11.9 - Type 2 diabetes mellitus without complications Status: Acute Assessment and Plan: - holding metformin for tonight. - Sliding scale insulin with Accu-Cheks AC and HS. (4) Hyperlipidemia: Code(s): E78.5 - Hyperlipidemia, unspecified Status: Acute Assessment and Plan: - She is intolerant to statin (5) Hypertension: Code(s): I10 - Essential (primary) hypertension Status: Acute Assessment and Plan: - p.r.n. hydralazine with parameters - lisinopril hip held due to acute on chronic renal failure (6) Anemia: Code(s): D64.9 - Anemia, unspecified Status: Acute Assessment and Plan: - anemia of chronic disease. (7) Hyperkalemia: Code(s): E87.5 - Hyperkalemia Status: Acute Assessment and Plan: - The patient was given a nebulizer treatment Kayexalate. - Recheck BMP tonight. -Holding lisinopril HPI Data of Consult Consult date: 02/15/22 Requesting Physician: Ismael Calero MD Primary Care Provider: See Skinner, Consult Narrative Narrative: Marcy Peña is a 76 year old female Who has had chronic left hip pain for approximately 4-6 weeks. The patient has been having severe pain. The patient has tried conservative measures such as could tore lack injections IM, Medrol Dosepak, tramadol, diclofenac, and tizanidine with only minimal relief. She also takes Tylenol. She is not able to take NSAIDs due to her chronic renal failure. The patient had been ambulating with a cane. The patient has severe left hip degenerative joint disease. She underwent a left total hip arthroplasty per Dr. Calero today. See operative note. Her white count was noted to be 12. H&H is 9.7 and 29.0. Her potassium was found to be 5.5. She was given Kayexalate. she was also given albuterol for the elevated potassium. Her creatinine is currently 2.0 on previously and had been anywhere from 1.36-1.54. She had a renal ultrasound performed today. Which was read asMild cortical atrophy. Nonobstructive right midpole nephroliths. Simple left upper pole cyst. Echogenic liver, most commonly due to steatosis but also can be seen with hepatitis and fibrosis. The patient was admitted to inpatient services in the hospitalist group was asked to consult on the date of service of 02/15/2022. Review of Systems Review of Systems: See HPI All systems reviewed & are unremarkable except as noted in HPI and below Constitutional: Constitutional: Reports as per HPI and Reports no additional constitutional complaints Eyes: Eyes: Reports as per HPI and Reports n
[2022-02-15 22:48] LABS: Glucose Point of Care 177 mg/dl (65-105)
[2022-02-15 22:53] LABS: Anion Gap 17 mmol/L (8-16); Blood Urea Nitrogen 22 mg/dL (7-17); Calcium 8.4 mg/dL (8.4-10.2); Carbon Dioxide 21 mmol/L (22-30); Chloride 99 mmol/L (98-107); Estimated CRCL calculation 22 ml/min; Estimated Glomerular Filt Rate 27; Glucose 105 mg/dL (65-110); Potassium 3.9 mmol/L (3.4-5.0); Sodium 137 mmol/L (137-145)
[2022-02-16] MEDS: ACETAMINOPHEN 500 MG TABLET PO ×2 (03:58→12:58)
[2022-02-16 05:19] VITALS: BP 122/55; PULSE 90; RESP 20; TEMP 36.5; O2SAT 100
[2022-02-16 06:34] LABS: Alanine Aminotransferase 15 U/L (6-35); Alkaline Phosphatase 99 U/L (38-126); Anion Gap 9 mmol/L (8-16); Aspartate Amino Transferase 39 U/L (14-36); Basophils Percent Auto 0.2 % (0.2-1.2); Bilirubin,Total 0.3 mg/dL (0.2-1.3); Blood Urea Nitrogen 21 mg/dL (7-17); Calcium 8.3 mg/dL (8.4-10.2); Carbon Dioxide 23 mmol/L (22-30); Chloride 105 mmol/L (98-107); Estimated CRCL calculation 28 ml/min; Estimated Glomerular Filt Rate 37; Glucose 103 mg/dL (65-110); Hematocrit 29.8 % (37.0-47.0); Hemoglobin 9.5 g/dL (12.0-15.0); Immature Granulocyte Absolute 0.06 K/mm3 (0.00-0.031); Immature Granulocyte Percent A 0.7 % (0-0.5); Lymphocytes Absolute Auto 0.65 K/mm3 (0.9-3.2); Lymphocytes Percent Auto 7.3 % (18.3-44.2); Magnesium 1.8 mg/dL (1.6-2.3); Mean Corpuscular HGB Conc 31.9 g/dl (32-36); Mean Corpuscular Hemoglobin 28.5 pg (26-34); Mean Corpuscular Volume 89.5 fl (80-100); Mean Platelet Volume 9.6 fl (7.4-10.4); Monocytes Absolute Auto 0.5 K/mm3 (0.1-0.6); Monocytes Percent Auto 6.1 % (2.6-8.5); Neutrophils Absolute Auto 7.6 K/mm3 (1.3-6.7); Neutrophils Percent Auto 85.7 % (45.5-73.1); Platelet Count Result 211 k/mm3 (150-375); Potassium 4.7 mmol/L (3.4-5.0); Red Blood Count 3.33 M/mm3 (4.2-5.4); Red Cell Distribution Width 13.7 % (11.5-14.5); Sodium 137 mmol/L (137-145); White Blood Count 8.9 K/mm3 (4.5-10.0)
[2022-02-16 06:41] LABS: Lactic Acid Reflex 0.9 mmol/L (0.7-2.0)
[2022-02-16 07:23] LABS: Thyroid Stimulating Hormone Reflex 0.666 uIU/mL (0.465-4.68)
[2022-02-16 07:48] LABS: Glucose Point of Care 104 mg/dl (65-105)
[2022-02-16] MEDS: levoFLOXacin 500 MG TABLET PO (08:35)
[2022-02-16] MEDS: ASPIRIN 325 MG ENTERIC TABLET 650 MG PO (08:35)
[2022-02-16] MEDS: SENNA/DOCUSATE SODIUM TABLET 2 TAB PO (08:36)
[2022-02-16] MEDS: metFORMIN HCL 500 MG TABLET 1000 MG PO (08:36)
[2022-02-16] MEDS: polyethylene glycoL 3350 17 GM POWD.PACK PO (08:36)
[2022-02-16 09:33] LABS: Iron 32 ug/dL (37-170)
[2022-02-16 09:41] LABS: Transferrin 168 mg/dL (206-381)
[2022-02-16 09:42] LABS: Percent Iron Saturation 13 % (20-50)
--- NOTE | 2022-02-16 10:15 | PM.IMPN ---
Progress Note: A&P Assessment and Plan (1) S/P total hip arthroplasty: Code(s): Z96.649 - Presence of unspecified artificial hip joint Status: Acute Assessment and Plan: - POD 2 - postop care per Dr. Calero - pain management norco 7.5/325 - DVT prophylaxis aspirin 650mg PO daily - PT and OT have been ordered by Dr. Calero. - Weight bearing toe touch weight bearing (2) Chronic kidney disease (CKD) stage G3b/A1, moderately decreased glomerular filtration rate (GFR) between 30-44 mL/min/1.73 square meter and albuminuria creatinine ratio less than 30 mg/g: Code(s): N18.32 - Chronic kidney disease, stage 3b Status: Acute Assessment and Plan: - Current BUN/Cr 21/1.40 - Baseline appears to be Cr 1.3-1.5 - Ultrasound shows some atrophy, and non obstructive stone with a cyst present - Nephrology out patient - Continue to trend labs - Resolved at this time (3) DM2 (diabetes mellitus, type 2): Code(s): E11.9 - Type 2 diabetes mellitus without complications Status: Acute Assessment and Plan: - Current Glucose 103 - holding metformin for tonight. - Sliding scale insulin with Accu-Cheks AC and HS. - Stable at this time - A1c 9.7 - Continue to trend - Adjust therapy as indicated (4) Hyperlipidemia: Code(s): E78.5 - Hyperlipidemia, unspecified Status: Acute Assessment and Plan: - She is intolerant to statin (5) Hypertension: Code(s): I10 - Essential (primary) hypertension Status: Acute Assessment and Plan: - Current BP is 122/55 - p.r.n. hydralazine with parameters - Start amlodipine 5mg PO Daily - Trend BP - Adjust therapy as indicated (6) Anemia: Code(s): D64.9 - Anemia, unspecified Status: Acute Assessment and Plan: - anemia of chronic disease - Anemia labs ordered - Supplement as indicated - Trend H/H - Currently stable at 9.5/29.8 - Might be a component of acute blood loss anemia from the recent surgery (7) Hyperkalemia: Code(s): E87.5 - Hyperkalemia Status: Acute Assessment and Plan: - The patient was given a nebulizer treatment Kayexalate. - K is stable at 4.7 Time Spent With Patient Time with patient: Greater than 35 minutes Subjective Date/time seen: 02/16/22 1015 Interval history: 02/16/22 1015 Patient seems to be doing okay. Renal function has returned back to normal. I did talk to the patient about her labs which she was interested in. She is going home with home health and at this time is stable for discharge on the hospitalist and. She denies any chest pain, shortness of breath, nausea, vomiting, diarrhea, constipation, weakness or fatigue. 02/15/22 1755 Marcy Peña is a 76 year old female? ? Who has had chronic left hip pain for approximately 4-6 weeks.? The patient has been having severe pain.? The patient has tried conservative measures such as could tore lack injections IM, Medrol Dosepak, tramadol, diclofenac, and tizanidine with only minimal relief.? She also takes Tylenol.? She is not able to take NSAIDs due to her chronic renal failure.? The patient had been ambulating with a cane.? The patient has severe left hip degenerative joint disease.? She underwent a left total hip arthroplasty per Dr. Calero today.? See operative note.? Her white count was noted to be 12.? H&H is 9.7 and 29.0.? Her potassium was found to be 5.5.? She was given Kayexalate. she was also given albuterol for the elevated potassium.? Her creatinine is currently 2.0 on previously and had been anywhere from 1.36-1.54.? She had a renal ultrasound performed today.? Which was read asMild cortical atrophy. Nonobstructive right midpole nephroliths. Simple left upper pole cyst. Echogenic liver, most commonly due to steatosis but also can be seen with hepatitis and fibrosis.? The patient was admitted to inpatient services
[2022-02-16] MEDS: amLODIPine BESYLATE 5 MG TABLET PO (11:29)
[2022-02-16 11:32] LABS: Glucose Point of Care 81 mg/dl (65-105)
--- NOTE | 2022-02-16 11:35 | PM.PNORT ---
Progress Note: A&P Assessment and Plan (1) S/P total hip arthroplasty: Qualifiers: Laterality: left Qualified Code(s): Z96.642 - Presence of left artificial hip joint Code(s): Z96.649 - Presence of unspecified artificial hip joint Status: Acute Assessment and Plan: POD #1 : Left NEMO Continue PT/OT. TTWB LLE. Walker. HIGH FALL RISK. Continue pain control. Ice Hip. Protect skin. DVT prophylaxis with Aspirin. SCDs. Incentive Spirometry Use reviewed. Monitor Dressing. Change prior to discharge. Bowel Regimen. Dispo: Home with Home Health pending progress with PT/OT and medicine clearance (2) Chronic kidney disease (CKD) stage G3b/A1, moderately decreased glomerular filtration rate (GFR) between 30-44 mL/min/1.73 square meter and albuminuria creatinine ratio less than 30 mg/g: Code(s): N18.32 - Chronic kidney disease, stage 3b Status: Acute Assessment and Plan: Current BUN/Cr 21/1.40, Resolved at this time. Appreciate Medicine input. (3) Hyperkalemia: Code(s): E87.5 - Hyperkalemia Status: Acute Assessment and Plan: The patient was given Kayexalate, K is stable at 4.7 (4) Anemia: Code(s): D64.9 - Anemia, unspecified Status: Acute Subjective Subjective Date/Time Seen: 02/16/ 11:35 Post Op day: 2 (Left NEMO ) Interval history: POD #1: Left NEMO Patient doing well. Working well with PT/OT. Some difficulty maintaining toe touch weight bearing. Review of Systems Constitutional: Constitutional: Denies chills, Denies fatigue, Denies fever(s), Denies night sweats and Denies weakness Cardiovascular: Cardiovascular: Denies chest pain, Denies lightheadedness, Denies palpitations and Denies dyspnea Respiratory: Respiratory: Denies cough, Denies dyspnea and Denies wheezing Gastrointestinal: Gastrointestinal: Denies abdominal pain, Denies diarrhea, Denies nausea and Denies vomiting Musculoskeletal: Musculoskeletal: Reports arthralgias (left hip ), Reports joint swelling (left hip ) and Denies numbness Neurologic: Denies numbness and Denies weakness Endocrine: Endocrine: Denies fatigue and Denies palpitations Allergic/Immunologic: Allergic/Immunologic: Denies wheezing Exam Const: General: comfortable and no acute distress Orientation/consciousness: patient oriented x3 Limitations: no limitations Resp: Effort & Inspection: normal respiratory effort Cardio: Rate: regular rate Rhythm: regular rhythm GI: Inspection: non-distended Skin: General skin exam: normal color Wounds: wounds noted (incision left hip C/D/I ) Neuro: General: patient oriented x3 Extrem: Left lower extremity: hip/thigh Details: tenderness Location: of the hip Location: laterally and anteriorly, swelling (thigh soft ) Location: of the hip (lateral. ), abnormal ROM (limitations with internal/external rotation and flexion/extension due to recent surgical intervention ) and other (incision lateral hip c/d/i. ), knee Details: normal to inspection and normal ROM; no tenderness and no swelling, lower leg (Negative Adri's Sign ) Details: no edema, ankle (+ankle dorsiflexion/plantarflexion ) Details: normal to inspection, no edema and normal ROM; no tenderness, no swelling and no warmth and foot Details: normal capillary refill, toes with normal ROM, vascular exam Details: dorsalis pedis pulse present and motor-sensory exam light-touch normal in all toes; no tenderness, no ecchymosis and no crepitus Psych: Mental Status: mental status grossly normal Affect: normal affect Objective Data Vital Signs Vital Signs: Vital Signs - 24 hr 02/15/22 15:02 02/15/22 14:20 02/15/22 15:09 Temperature 36.1 C L Pulse Rate 83 81 78 Respiratory Rate 16 16 16 Blood Pressure 110/67 Pulse Oximetry 100 Oxygen Delivery 02/15/22 18:02 02/15/22 22:00 02/15/22 20:00 Temperature 36.9 C 36.4 C Pulse Rate 90 89 Respiratory Rate 16 16 Blood Pressure 116/78 105/5
[2022-02-16 12:23] LABS: Folic Acid 3.2 ng/mL (2.76->20)
[2022-02-16 14:00] VITALS: BP 107/60; PULSE 109; RESP 18; TEMP 36.2; O2SAT 100
--- NOTE | 2022-02-16 14:38 | PM.DS ---
DS: Admitting Diagnosis Discharge Date 02/16/22 Admitting Diagnosis Left NEMO DS: Discharge Diagnosis Discharge Diagnosis (1) S/P total hip arthroplasty: Qualifiers: Laterality: left Qualified Code(s): Z96.642 - Presence of left artificial hip joint Code(s): Z96.649 - Presence of unspecified artificial hip joint Status: Acute Assessment and Plan: POD #1 : Left NEMO Continue PT/OT. TTWB LLE. Walker. HIGH FALL RISK. Continue pain control. Ice Hip. Protect skin. DVT prophylaxis with Aspirin. SCDs. Incentive Spirometry Use reviewed. Monitor Dressing. Change prior to discharge. Bowel Regimen. Dispo: Home with Home Health pending progress with PT/OT and medicine clearance (2) Chronic kidney disease (CKD) stage G3b/A1, moderately decreased glomerular filtration rate (GFR) between 30-44 mL/min/1.73 square meter and albuminuria creatinine ratio less than 30 mg/g: Code(s): N18.32 - Chronic kidney disease, stage 3b Status: Acute Assessment and Plan: Current BUN/Cr 21/1.40, Resolved at this time. Appreciate Medicine input. (3) Hyperkalemia: Code(s): E87.5 - Hyperkalemia Status: Acute Assessment and Plan: The patient was given Kayexalate, K is stable at 4.7 (4) Anemia: Code(s): D64.9 - Anemia, unspecified Status: Acute DS: Summary Hospital Course Reason for hospitalization: Left NEMO Hospital Course: 76 year old female admitted s/p left NEMO for postoperative medical management, paint control and mobilization with PT/OT. Patient progressed well with PT/OT on POD #2. She is maintaining TTWB status as ordered by Dr. Calero to the best of her ability. She did have an elevated creatinine and potassium while hospitalized. The medicine team was consulted to assist with medical management. She was treated with Kayexalate and potassium is now stable. The medicine team stopped her Lisinopril and started her on Norvasc. Creatinine stable. She has been cleared to be discharged home with home health at this time. Follow up planned for 3 weeks in the outpatient orthopedic clinic with Dr. Calero. Status at Discharge Functional status at discharge: uses cane/walker Overall status at discharge: patient is progressing back to baseline Time Spent with Patient Time attestation: Total time spent providing and/or coordinating discharge services: Exam Const: General: comfortable and no acute distress Orientation/consciousness: patient oriented x3 Limitations: no limitations Resp: Effort & Inspection: normal respiratory effort Cardio: Rate: regular rate Rhythm: regular rhythm GI: Inspection: non-distended Skin: General skin exam: normal color Wounds: wounds noted (incision left hip C/D/I ) Neuro: General: patient oriented x3 Extrem: Left lower extremity: hip/thigh Details: tenderness Location: of the hip Location: laterally and anteriorly, swelling (thigh soft ) Location: of the hip (lateral. ), abnormal ROM (limitations with internal/external rotation and flexion/extension due to recent surgical intervention ) and other (incision lateral hip c/d/i. ), knee Details: normal to inspection and normal ROM; no tenderness and no swelling, lower leg (Negative Adri's Sign ) Details: no edema, ankle (+ankle dorsiflexion/plantarflexion ) Details: normal to inspection, no edema and normal ROM; no tenderness, no swelling and no warmth and foot Details: normal capillary refill, toes with normal ROM, vascular exam Details: dorsalis pedis pulse present and motor-sensory exam light-touch normal in all toes; no tenderness, no ecchymosis and no crepitus Other: VSS AFEBRILE DRESSING DRY NV INTACT NEG HOMANS SIGN, CALF SOFT NON TENDER Psych: Mental Status: mental status grossly normal Affect: normal affect DS: Data Data Completed and Pending Labs on day of discharge: Labs from last 24 hours 02/16/22 02/16/22 02/16/22 11:30 07:42 06:05 WBC RBC Hgb Hct
--- NOTE | 2022-02-16 16:10 | PC.NURSE ---
Patient dressing changed, patient sent home with mepilex ag and toe touch weight-bearing reinforced
== END 2022-02-16 16:10 | disposition home health service (06) | DRG 470 ==
LOC: ANHSURGERY 15:18 → ANH3MEDSUR 15:18
PROVIDERS: Family Medicine; Nurse Practitioner; Admitting Provider Orthopaedic Surgery; PCP Family Medicine; Visit Provider Nurse Practitioner Family
PROC: 0SRB01A Replacement of Left Hip Joint with Metal Synthetic Substitute, Uncemented, Open Approach (ICD-10-PCS; CPT 27130; principal; 2022-02-14 07:30)
DX: M16.12 Unilateral primary osteoarthritis, left hip (principal); D62 Acute posthemorrhagic anemia; I12.9 Hypertensive chronic kidney disease with stage 1 through stage 4 chronic kidney disease, or unspecified chronic kidney disease; E11.22 Type 2 diabetes mellitus with diabetic chronic kidney disease; N18.32 Chronic kidney disease, stage 3b; E78.5 Hyperlipidemia, unspecified; D63.1 Anemia in chronic kidney disease; E87.5 Hyperkalemia; Z90.49 Acquired absence of other specified parts of digestive tract; Z90.710 Acquired absence of both cervix and uterus
CPT/HCPCS: 36415; 73501; 76775; 80048; 80053; 81003; 82607; 82728; 82746; 82948; 83540; 83550; 83605; 83735; 84300; 84443; 84466; 84540; 85025; 94640; 97110; 97116; 97161; 97165; 97530; 97535; A9270; C1776; J0171; J0330; J0690; J1100; J1170; J1885; J2270; J2370; J2405; J2704; J2710; J2765; J2795; J3010; J7030; J7040; J7120

== ENCOUNTER 2022-02-23 11:02 | Outpatient (NON) | payer MEDICARE, SELFPAY ==
[2022-02-23 11:30] LABS: Alanine Aminotransferase 20 U/L (14-59); Albumin Level 2.8 g/dL (3.4-5.0); Alkaline Phosphatase 104 U/L (46-116); Anion Gap 6 mmol/L (8-16); Aspartate Amino Transferase 15 U/L (15-37); Bilirubin,Total 0.3 mg/dL (0.00-1.00); Blood Urea Nitrogen 19 mg/dL (7-18); Calcium 9.1 mg/dL (8.5-10.1); Carbon Dioxide 30 mmol/L (21-32); Chloride 101 mmol/L (98-108); Estimated Glomerular Filt Rate 35; Glucose 108 mg/dL (70-99); Osmolality Calculated 287 mOsm/kg (285-295); Potassium 4.1 mmol/L (3.5-5.1); Sodium 137 mmol/L (136-145)
== END 2022-02-23 11:03 | disposition home or self-care (01) ==
LOC: CHSHH 11:04
PROVIDERS: Visit Provider Nurse Practitioner Family
DX: E87.5 Hyperkalemia (principal)
CPT/HCPCS: 36415; 80053

== ENCOUNTER 2022-03-07 07:46 | Outpatient (CLI) | payer MEDICARE, SELFPAY ==
--- NOTE | ~2022-03-07 | XR_ITS ---
EXAMINATION: XR hip LT min 3V w AP pelvis DATE: 03/07/2022 08:13 INDICATION: Left hip arthroplasty. Soreness. TECHNIQUE: An anteroposterior view of the pelvis and 3 views of left hip were obtained. COMPARISON: Left hip radiograph 02/14/2022 FINDINGS: There is a total left hip arthroplasty in near-anatomic alignment. No periprosthetic lucenc y to suggest loosening or infection. No fracture. There is moderate right hip osteoarthritis. Osteiti s pubis is noted. There is lumbar levocurvature and severe spondylosis. IMPRESSION: 1. Total left hip arthroplasty in near-anatomic alignment. 2. Moderate osteoarthritis of right hip. Reviewed, dictated and finalized at location A.
== END 2022-03-07 07:47 | disposition home or self-care (01) ==
LOC: CHSIMG 07:48
PROVIDERS: PCP Family Medicine; Visit Provider Orthopaedic Surgery
DX: M25.552 Pain in left hip (principal); M16.9 Osteoarthritis of hip, unspecified
CPT/HCPCS: 73502

== ENCOUNTER 2022-04-04 07:45 | Outpatient (RCR) | payer MEDICARE, SELFPAY ==
--- NOTE | 2022-04-04 09:01 | PTOPEVAL1 ---
Assessment and note entered by Tana Arriola DPT Evaluation Information Assessment Status Evaluation Diagnosis L hip NEMO Onset 02/14/2022 Subjective Information Pt reports that she had her L hip replaced on 02/14 . Pt reports she received the hip replacement as she was [id number] in her hip with high levels of pain. Pt reports she was using a walker but is now using a cane. She has pain more in the muscles of her hip and thigh rather than in her joint. Pt reports that ice and medication has been somewhat helpful, but heat is not helpful. Pt has a follow -up appointment with her MD in May. Pt reports that her MD has released her from all surgical precautions. She reports increased pain when her leg is straight or when walking. She reports sleep is mostly unaffected even when lying on her side. Denies numbness/tingling or weakness in her hip. She wants to improve pain to be able to walk, drive, perform yardwork, and get rid of her cane. Reported Pain Level Pain Score 0: Self Report Assessment PT Clinical Summary Pt reports to skilled PT s/p L NEMO on 02/14 with L hip pain and demonstrates decreased strength, decreased range of motion, altered gait, and impaired dynamic balance. 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 She was provided with an HEP focused on improving her hip strength and mobility as well as dynamic balance. She will benefit from skilled PT to facilitate symptom relief, improve the aforementioned impairments, and return to functional and recreational activities. Plan of Care Interventions Electrical Stimulation,Gait Training,Hot Pack/Cold Pack,Manual Therapy,Neuro Re-education,Patient/ Caregiver Educati,Therapeutic Activities, Therapeutic Exercise PT Services Indicated Yes Treatment Frequency and 2x week for 12 visits Duration These treatments will address the objective and functional deficits as defined above. The patient will be advanced safely and appropriately in order for the patient to progress towards his/her prior level of function. Additional exercises will be introduced and as well as a comprehensive home exercise program upon discharge, if needed, ?to ensure carryover of functional gains achieved in the clinic. This treatment plan has been reviewed and agreement upon by the patient.
--- NOTE | 2022-04-24 08:59 | PTOPPROG ---
Assessment and note entered by Tana Arriola DPT Evaluation Information Assessment Status Progress Diagnosis L hip NEMO Onset 02/14/2022 Subjective Information Pt continues to report no pain, just some stiffness in her hip. She reports that she has been walking more without her cane at home and is feeling more comfortable without it. Assessment PT Clinical Summary Pt presents to PT with significant improvements in strength, pain, ROM, static/dynamic balance, and gait pattern since her initial evaluation. She still demonstrates a light trendelenburg pattern with gait and decreased strength in her L hip as compared to her R hip. She will continue to benefit from skilled PT to further improve the aforementioned impairments and return to functional and recreational activities. Plan of Care PT Services Indicated Yes Treatment Frequency and 2x week for remaining 5 visits Duration These treatments will address the objective and functional deficits as defined above. The patient will be advanced safely and appropriately in order for the patient to progress towards his/her prior level of function. Additional exercises will be introduced and as well as a comprehensive home exercise program upon discharge, if needed, ?to ensure carryover of functional gains achieved in the clinic. This treatment plan has been reviewed and agreement upon by the patient.
== END 2022-05-10 09:46 | disposition home or self-care (01) ==
LOC: CHSPT 07:45
PROVIDERS: Visit Provider Orthopaedic Surgery
DX: Z96.642 Presence of left artificial hip joint (principal); M16.9 Osteoarthritis of hip, unspecified
CPT/HCPCS: 97110; 97116; 97161; 97530

== ENCOUNTER 2022-04-14 00:13 | Emergency (ER) | payer MEDICARE, SELFPAY ==
[2022-04-14 00:15] VITALS: BP 154/65; PULSE 100; RESP 20; TEMP 36.4; O2SAT 97
--- NOTE | 2022-04-14 00:26 | ED.WOUNDLAC ---
HPI - Wound/Laceration General Stated Complaint: Rash in Groin Area Source: patient Mode of arrival: ambulatory Limitations: no limitations History of Present Illness HPI narrative: this is a 76-year-old female that has a red Yeast D moist area under the skin fold of her left fat pad that is red irritated and tender with no fever chills patient noticed it this evening. Onset (ago): day(s) Place: home Related Data Allergies Allergy/AdvReac Type Severity Reaction Status Date / Time metronidazole Allergy Unknown Unknown Verified 04/10/22 07:08 pioglitazone [From Actos] AdvReac Severe Swelling Verified 04/10/22 07:08 [facility] Past Medical History Medical History Anemia Arthritis Chronic kidney disease (CKD) stage G3b/A1, moderately decreased glomerular filtration rate (GFR) between 30-44 mL/min/1.73 square meter and albuminuria creatinine ratio less than 30 mg/g DM2 (diabetes mellitus, type 2) Hyperlipidemia Hypertension Overweight Surgical History Surgical History H/O cataract extraction History of appendectomy History of hysterectomy Age 43 S/P total hip arthroplasty Family History Family History Mother Hypertension Diabetes mellitus CHF (congestive heart failure) Father , Age 69 Pancreatitis Social History Social History Social History: she lives home alone but is getting help after surgery. She has no children and she is . She is retired from banking. Code status full code Smoking status: Never smoker Additional smoking assessment comments: DENIES ANY FORM OF TOBACCO USE Alcohol intake: never Substance use: never Additional living arrangements comments: . No children. Additional occupation/education comments: Prior Occupation: Feature Writer Spiritual care concerns: No Exam Const: General: healthy appearing Nutritional Appearance: well nourished Orientation/consciousness: patient oriented x3 HENMT: Head: normal to inspection Eyes: Conjunctivae: conjunctivae normal Pupils: Equal, round and reactive pupils present EOM: EOMs intact bilaterally Neck: Neck: normal visual inspection Chest: Chest palpation & inspection: normal inspection of the chest Resp: Effort & Inspection: normal respiratory effort Auscultation: clear to auscultation bilaterally Cardio: Rate: regular rate Rhythm: regular rhythm GI: Auscultation: normal bowel sounds Back/Spine/Pelvis: Back: no CVA tenderness Skin: Other: Moist red Yeast looking area under the fat pad of the left groin area Neuro: General: patient oriented x3 Cranial nerves: Yes Nystagmus not present Speech: normal speech Extrem: General: normal to inspection Psych: Mental Status: mental status grossly normal Affect: normal affect Course Course Emergency Course: will send nystatin to patient's pharmacy Critical Care Time Critical Care Time Critical Care Time: No Discharge Plan Discharge Clinical Impression: Yeast infection of the skin Patient Disposition: Home, Self-Care Condition: Stable Instructions: Antibiotic Form, Skin Yeast Infection (ED) Additional Instructions: use cream to affected area 3 times daily x1 week Prescriptions: No Action betamethasone valerate 0.1 % cream 1 applic topical BID PRN (Reason: rash) Qty: 45 0RF amlodipine [Norvasc] 5 mg tablet 5 mg PO QAM Qty: 90 3RF Follow-up/Referrals: See Skinner DO [Primary Care Provider] - Time of Disposition: 00:29
[2022-04-14] MEDS: MICONAZOLE NITRATE 2% CREAM 30 GM TUBE 1 APPLIC TOPICAL (00:35)
[2022-04-14 00:45] VITALS: BP 145/85; PULSE 94; RESP 20; O2SAT 100
== END 2022-04-14 00:47 | disposition home or self-care (01) ==
PROVIDERS: Emergency Provider Emergency Medicine; PCP Family Medicine
DX: B37.2 Candidiasis of skin and nail (principal)
CPT/HCPCS: 99283; A9270

== ENCOUNTER 2022-05-30 08:52 | Outpatient (CLI) | payer MEDICARE, SELFPAY ==
--- NOTE | ~2022-05-30 | XR_ITS ---
AP and lateral views of the left hip Clinical history: Pain, hip replacement COMPARISON: 03/07/2022 Findings: No acute fracture or dislocation is seen. Left hip arthroplasty is unchanged. No hardware c omplication identified. Soft tissues are unremarkable. Impression: Left hip arthroplasty in place, unchanged, without evidence of hardware complication. No acute osseous fracture. Reviewed, dictated and finalized at location . 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 No acute osseous fracture.
== END 2022-05-30 08:53 | disposition home or self-care (01) ==
LOC: CHSIMG 08:54
PROVIDERS: PCP Family Medicine; Visit Provider Family Medicine
DX: M25.552 Pain in left hip (principal); Z96.642 Presence of left artificial hip joint
CPT/HCPCS: 73502

== ENCOUNTER 2022-08-15 08:06 | Outpatient (CLI) | payer MEDICARE, SELFPAY ==
--- NOTE | ~2022-08-15 | MM_ITS ---
EXAMINATION: MM screening [facility] BI w emilia HISTORY: Screening TECHNIQUE: Craniocaudal and mediolateral oblique 3-D tomosynthesis images were obtained and synthetic 2-D images were generated. CAD analysis was submitted and interpreted. COMPARISON: Comparison to multiple prior studies sequentially, with oldest reviewed study dated 04/28. BREAST PARENCHYMAL COMPOSITION: There are scattered areas of fibroglandular density. FINDINGS: There is no evidence of suspicious mass, calcification, or architectural distortion to sugg est malignancy in either breast. There has been no suspicious interval change. IMPRESSION: 1. No mammographic evidence of malignancy. 2. Recommend routine screening mammography in one year. BI-RADS Category 1: Negative Reviewed, dictated and finalized at location A.
== END 2022-08-15 08:07 | disposition home or self-care (01) ==
LOC: CHSIMG 08:09
PROVIDERS: PCP Family Medicine; Visit Provider Family Medicine
DX: Z12.31 Encounter for screening mammogram for malignant neoplasm of breast (principal)
CPT/HCPCS: 77063; 77067

== ENCOUNTER 2022-10-25 13:26 | Outpatient (CLI) | payer MEDICARE, SELFPAY ==
--- NOTE | ~2022-10-25 | XR_ITS ---
EXAM: XR lumbar spine 2-3V DATE: 10/25/2022 13:43 HISTORY: M54.30 - Sciatica, unspecified side . COMPARISON: None available. FINDINGS: Mild lumbar scoliosis. 5 nonrib-bearing lumbar-type vertebral bodies. Pedicles intact. 5 mm retrolisthesis at L1-2. 2 mm retrolistheses at L2-3 and L3-4. 5 mm anterolisthesis at L4-5. Vertebra l body heights preserved. Multilevel severe disc space narrowing and marginal osteophytosis, with vac uum phenomenon at all lumbar levels with the exception of L3-4. Multilevel severe facet sclerosis and hypertrophy. No fracture or dislocation. Partially visualized left hip implant. Atherosclerotic calc ifications of the aorta without evident aneurysm IMPRESSION: Multilevel grade 1 listheses. Multilevel severe degenerative disc disease. Altered level severe facet arthropathy. Reviewed, dictated and finalized at location K. IMPRESSION: Multilevel grade 1 listheses. Multilevel severe degenerative disc d isease. Altered level severe facet arthropathy.
== END 2022-10-25 13:27 | disposition home or self-care (01) ==
LOC: CHSIMG 13:29
PROVIDERS: PCP Family Medicine; Visit Provider Family Medicine
DX: M54.30 Sciatica, unspecified side (principal); M43.06 Spondylolysis, lumbar region; M51.36 Other intervertebral disc degeneration, lumbar region
CPT/HCPCS: 72100

== ENCOUNTER 2022-10-30 08:53 | Outpatient (RCR) | payer MEDICARE, SELFPAY ==
--- NOTE | 2022-10-30 10:03 | PTOPEVAL1 ---
Assessment and note entered by JT File, PT Evaluation Information Assessment Status Evaluation Diagnosis sciatica L side. Onset 10/25/22 Subjective Information patient reports she has been having L sciatica for about 3 weeks. she reports it does move at times. she reports most of the time it stays in the L buttock, but at times it will radiate into the lower back and down into the bilateral lower buttocks. she reports no injury. she reports she did have xrays. she reports she has had symptoms in the past, but reports it was many years ago and it went away on its own. she reports she has been treating with tylenol as needed. she reports she has increased pain with sitting and not moving. she reports she is most limited in her ability to sit and relax at home. prior to 3 weeks ago, no issues with the lower back or L LE. she reports she has no numbness, burning, or tingling. she reports her pain is constant and sharp. Reported Pain Level Pain Score 0: Self Report Assessment PT Clinical Summary mrs. freeman is a 77 yo woman who presents to skilled PT services for evaluation and treatment of L LE pain. she presents today with L sciatica symptoms secondary to DDD of the lumbar spine and weakness in the L hip. she displays mm weakness of the core and L hip, hamstrings tightness, and tenderness to palpation of the L lateral LE and L buttock. she would benefit from continued skilled PT and exercises to improve her objective/ functional deficits and return to her prior level funcitonal activity performance/quality of life. Plan of Care Interventions Electrical Stimulation,Gait Training,Hot Pack/Cold Pack,Manual Therapy,Neuro Re-education,Patient/ Caregiver Educati,Therapeutic Activities, Therapeutic Exercise PT Services Indicated Yes Treatment Frequency and 3x weekly for 12 visits Duration These treatments will address the objective and functional deficits as defined above. The patient will be advanced safely and appropriately in order for the patient to progress towards his/her prior level of function. Additional exercises will be introduced and as well as a comprehensive home exercise program upon discharge, if needed, ?to ensure carryover of functional gains achieved in the clinic. This treatment plan has been reviewed and agreement upon by the patient.
--- NOTE | 2022-10-30 10:03 | OPREHPOC ---
Outpatient Therapy Plan of Care This is a Multidisciplinary Plan of Care that may contain components documented by all disciplines (PT, OT, and ST.) PT Problem 1 PT Problem #1 Knowledge Deficit PT Goal 1 Goal 1. independent and compliant with HEP Target Visit 6 PT Problem 2 PT Problem #2 Pain PT Goal 1 Goal 1. decrease pain at worst to 2/10 or less in the L buttock/LE Target Visit 12 PT Problem 3 PT Problem #3 Impaired Strength PT Goal 1 Goal 1. improve core strength to display PPT contraction with bilateral hip marching in hooklying 2. improve L hip strength to 4+/5 or better overall 3. improve R hip abd to 4+/5 or better Target Visit 12 PT Problem 4 PT Problem #4 Impaired Functional Mobil PT Goal 1 Goal 1. oswestry to display less than 5% functional deficits 2. patient to ambulate with normal gait mechanics 3. patient to perform all bed mobility and transfers without pain 4. patient to stand, walk, and sit for 2 hours or more without increased pain
--- NOTE | 2022-11-22 09:18 | OPREHPOC ---
Outpatient Therapy Plan of Care This is a Multidisciplinary Plan of Care that may contain components documented by all disciplines (PT, OT, and ST.) PT Problem 1 PT Problem #1 Knowledge Deficit PT Goal 1 Goal 1. independent and compliant with HEP Target Visit 6 Progress Met PT Problem 2 PT Problem #2 Pain PT Goal 1 Goal 1. decrease pain at worst to 2/10 or less in the L buttock/LE Target Visit 12 Progress Met PT Problem 3 PT Problem #3 Impaired Strength PT Goal 1 Goal 1. improve core strength to display PPT contraction with bilateral hip marching in hooklying 2. improve L hip strength to 4+/5 or better overall 3. improve R hip abd to 4+/5 or better Target Visit 12 Progress Met PT Problem 4 PT Problem #4 Impaired Functional Mobil PT Goal 1 Goal 1. oswestry to display less than 5% functional deficits 2. patient to ambulate with normal gait mechanics 3. patient to perform all bed mobility and transfers without pain 4. patient to stand, walk, and sit for 2 hours or more without increased pain Progress Partially Met
--- NOTE | 2022-11-22 09:18 | PTOPDC ---
Assessment and note entered by Yennifer Pulido DPT Evaluation Information Assessment Status Re-evaluation Diagnosis sciatica L side. Onset 10/25/22 Subjective Information Patient reports since start of PT she is feeling 95% better. She reports she has been able to return to all activities with minimal pain. She would like to DC today. Reported Pain Level Pain Score 0: Self Report Assessment PT Clinical Summary Patient has been seen for 9 visits of skilled PT with great improvement towards all goals. She demonstrates improved LE strength and decreased pain levels with improved ability to sit for prolonged periods of time and complete house hold tasks. She reports compliance with HEP and is appropriate for DC at this time. Plan of Care PT Services Indicated No
== END 2022-11-22 10:22 | disposition home or self-care (01) ==
LOC: CHSPT 08:53
PROVIDERS: PCP Family Medicine; Visit Provider Family Medicine
DX: M54.30 Sciatica, unspecified side (principal)
CPT/HCPCS: 97014; 97110; 97140; 97161; G0283

== ENCOUNTER 2022-11-03 08:20 | Outpatient (CLI) | payer MEDICARE, SELFPAY ==
--- NOTE | ~2022-11-03 | DEXA_ITS ---
Bone Density Report Name: VIKA DICK Age: 77 Sex: Female Ethnicity: White Date of : 1945 Indication: postmenopausal; screening for osteoporosis; parental hip fracture; height loss; prior fracture; hysterectomy; Referring Provider: See Skinner Study: Bone densitometry was performed. Exam Date: November 03, 2022 Accession number: [id number] Bone Density: Region BMD T-score Z-score Classification AP Spine(L1-L4) 1.159 1.0 3.5 Normal Femoral Neck (Right) 0.556 -2.6 -0.5 Osteoporosis Total Hip (Right) 0.691 -2.1 -0.2 Osteopenia World Health Organization criteria for BMD impression classify patients as: Normal (T-score at or above -1.0), Osteopenia (T-score between -1.0 and -2.5), or Osteoporosis (T-score at or below -2.5). 10-year Fracture Risk: FRAX not reported because: Some T-score for Spine Total or Hip Total or Femoral Neck at or below -2.5 Clinical Information Provided by Patient: Has had a low trauma fracture Parent has had a hip fracture Has the following medical conditions: Hysterectomy Patient maximum height was 60 Menopause Age: 43 No regular weight bearing exercise Does not regularly consume dairy products Drinks caffeinated beverages Onset of menses at age 11 Number of children 0 Impression: The patient has established osteoporosis, based on the Right Femoral Neck T-score and the existence of a prior fracture. The patient has risk factors, including: parental hip fracture, previous fracture. Discussion: HIGH RISK OF FRACTURE. BONE DENSITY IS UNDESIRABLY LOW AT ONE OR MORE SKELETAL SITES, CONSISTENT WITH POSTMENOPAUSAL OSTEOPOROSIS. This patient's lowest T-score, in a patient who has previously fractured, meets the World Health Organization's (WHO) criteria for severe osteoporosis. In untreated patients, the risk of osteoporotic fracture increases approximately two-fold for each 1.0 SD decrease in T-score. Low bone density is not the only risk factor for fracture; also consider factors such as patient's age, frailty or poor health, risk of falling, risk of injury, previous osteoporotic fracture, family history of osteoporosis, cigarette smoking, low body weight, etc. Not everyone with low bone mineral density has osteoporosis; osteomalacia and other metabolic bone disorders should also be considered. Patients who have osteoporosis should be evaluated for specific diseases and conditions (secondary causes) that may cause or contribute to bone loss. The [place] [employer] Endocrinologists (AACE) and National Osteoporosis Foundation (NOF) recommend pharmacologic intervention for all postmenopausal women whose T-score is in this range. The patient should follow a healthful lifestyle (good nutrition with adequate calcium and vitamin D, and appropriate weight-bearing exercise). Follow-Up: Consider a repeat BMD and V
== END 2022-11-03 08:21 | disposition home or self-care (01) ==
LOC: CHSIMG 08:22
PROVIDERS: PCP Family Medicine; Visit Provider Family Medicine
DX: Z78.0 Asymptomatic menopausal state (principal); M81.0 Age-related osteoporosis without current pathological fracture; M85.88 Other specified disorders of bone density and structure, other site
CPT/HCPCS: 77080

== ENCOUNTER 2022-12-12 09:31 | Outpatient (CLI) | payer MEDICARE, SELFPAY ==
--- NOTE | ~2022-12-12 | XR_ITS ---
XR hip LT min 2V DATE: 12/12/2022 09:54 INDICATION: Left hip pain TECHNIQUE: AP and crosstable lateral views of left hip COMPARISON: 05/30/2022 left hip FINDINGS: Status post left total hip arthroplasty. Normal alignment. No fracture or dislocation, sarkis osteal reaction or bone destruction of the left hip is noted. Normal alignment at the pubic symphysis and left sacroiliac joint. IMPRESSION: Status post left total hip arthroplasty Reviewed, dictated and finalized at location L.
== END 2022-12-12 09:32 | disposition home or self-care (01) ==
LOC: CHSIMG 09:33
PROVIDERS: PCP Family Medicine; Visit Provider Orthopaedic Surgery
DX: M25.552 Pain in left hip (principal); Z96.642 Presence of left artificial hip joint
CPT/HCPCS: 73502

== ENCOUNTER 2023-06-13 19:10 | Emergency (ER) | payer MEDICARE, SELFPAY ==
[2023-06-13 19:10] VITALS: BP 133/86; PULSE 100; RESP 18; TEMP 36.3; O2SAT 96
[2023-06-13 19:18] LABS: Glucose Point of Care 154 mg/dl (65-105)
--- NOTE | 2023-06-13 19:20 | ED.WOUNDLAC ---
HPI - Wound/Laceration General Chief Complaint: Wound/Laceration Stated Complaint: hand laceration Source: patient Mode of arrival: ambulatory Limitations: no limitations History of Present Illness HPI narrative: 77-year-old female with a history of hypertension, osteoporosis, diabetes presented to the ER with -- 1 cm superficial laceration over her left thumb. She cut herself with the knife while cutting cauliflower. Onset (ago): hour(s) ( 1 hour ago) Location: other ( left thumb) Body four view annotation: 1. 1 cm left thumb superficial laceration Place: home Patient tetanus UTD: Yes Context: accidental Associated symptoms: none Related Data Home Medications Medication Instructions Recorded Confirmed amlodipine 5 mg tablet (Norvasc) 5 mg PO DAILY 06/13/23 06/13/23 metformin 500 mg tablet 500 mg PO BID 06/13/23 06/13/23 Allergies Allergy/AdvReac Type Severity Reaction Status Date / Time metronidazole Allergy Unknown Unknown Verified 06/13/23 19:20 pioglitazone [From Actos] AdvReac Severe Swelling Verified 06/13/23 19:20 Review of Systems Review of Systems: All systems reviewed & are unremarkable except as noted in HPI and below Constitutional: Constitutional: Reports as per HPI and Reports no additional constitutional complaints Eyes: Eyes: Reports as per HPI and Reports no additional eye complaints ENT: Reports system reviewed and no additional complaints, except as documented and Reports as per HPI Cardiovascular: Cardiovascular: Reports as per HPI and Reports no additional cardiovascular complaints Respiratory: Respiratory: Reports as per HPI and Reports no additional respiratory complaints Gastrointestinal: Gastrointestinal: Reports as per HPI and Reports no additional gastrointestinal complaints Genitourinary: Genitourinary: Reports no additional female genitourinary complaints and Reports as per HPI Musculoskeletal: Musculoskeletal: Reports no additional musculoskeletal complaints and Reports as per HPI Integumentary/Breasts: Skin/Breast: Reports system reviewed and no additional complaints, except as docu and Reports as per HPI Comments: 1 cm superficial laceration over left thumb Neurologic: Reports system reviewed and no additional complaints, except as documented and Reports as per HPI Psychiatric: Psychiatric: Reports no additional psychiatric complaints and Reports as per HPI Endocrine: Endocrine: Reports no additional endocrine complaints and Reports as per HPI Hematologic/Lymphatic: Hematologic/Lymphatic: Reports no additional hematologic/lymphatic complaints and Reports as per HPI Allergic/Immunologic: Allergic/Immunologic: Reports no additional allergic/immunologic complaints and Reports as per HPI PMFSH Past Medical History Medical History Anemia Arthritis Chronic kidney disease (CKD) stage G3b/A1, moderately decreased glomerular filtration rate (GFR) between 30-44 mL/min/1.73 square meter and albuminuria creatinine ratio less than 30 mg/g DM2 (diabetes mellitus, type 2) Hyperlipidemia Hypertension Overweight Surgical History Surgical History H/O cataract extraction History of appendectomy History of hysterectomy Age 43 S/P total hip arthroplasty Family History Family History Mother Hypertension Diabetes mellitus CHF (congestive heart failure) Father , Age 69 Pancreatitis Social History Social History Social History: She lives at home alone. She has no children and she is . She is retired from banking. Code status full code Smoking status: Never smoker Additional smoking assessment comments: DENIES ANY FORM OF TOBACCO USE Alcohol intake: never Substance use: never Living arrangements: alone Addit
== END 2023-06-13 19:52 | disposition home or self-care (01) ==
PROVIDERS: Emergency Provider Internal Medicine Critical Care Medicine; PCP Family Medicine
DX: S61.012A Laceration without foreign body of left thumb without damage to nail, initial encounter (principal); E11.22 Type 2 diabetes mellitus with diabetic chronic kidney disease; I12.9 Hypertensive chronic kidney disease with stage 1 through stage 4 chronic kidney disease, or unspecified chronic kidney disease; N18.32 Chronic kidney disease, stage 3b; E78.5 Hyperlipidemia, unspecified; W26.0XXA Contact with knife, initial encounter
CPT/HCPCS: 12001; 82948; 99282

== ENCOUNTER 2023-08-20 13:06 | Outpatient (CLI) | payer MEDICARE, SELFPAY ==
--- NOTE | ~2023-08-20 | MM_ITS ---
EXAMINATION: MM screening [facility] BI w emilia HISTORY: Screening mammogram TECHNIQUE: Craniocaudal and mediolateral oblique 3-D tomosynthesis images were obtained and synthetic 2-D images were generated. CAD analysis was submitted and interpreted. COMPARISON: 08/15/2022, 08/01/2021 bilateral screening mammogram examinations BREAST PARENCHYMAL COMPOSITION: There are scattered areas of fibroglandular density. FINDINGS: There is a biopsy marker in each side; history of prior bilateral benign breast biopsies. S cattered bilateral benign calcifications. There is no evidence of suspicious mass, calcification, or architectural distortion to suggest malignancy in either breast. There has been no suspicious interva l change. IMPRESSION: 1. No mammographic evidence of malignancy. 2. Recommend routine screening mammography in one year. BI-RADS Category 1: Negative Reviewed, dictated and finalized at location A.
--- NOTE | 2023-08-20 13:11 | ECHO_ITS ---
Patient Info Name: Marcy Peña Age: 78 years : 1945 Gender: Female Ht: 60 in Wt: 155 lbs BSA: 1.75 m2 HR: 75 bpm BP: 183 / 95 mmHg Heart Rhythm: Sinus Rhythm Technical Quality: Good Exam Date: 08/20/2023 1:36 PM Exam Location: Echo Lab Patient Status: Outpatient Admit Date: 08/20/2023 Staff Ordering Physician: See Skinner DO Oil Winterizer: Salbador Goodwin RDCS Attending Provider: See Skinner DO Referring Physician: Susanne HIGGINS; Exam Type: CA echo doppler color flow Study Info Indications - heart failure, unsp Complete two-dimensional, color flow and Doppler transthoracic echocardiogram is performed. Summary 1. Complete two-dimensional, color flow and Doppler transthoracic echocardiogram is performed. 2. Left ventricular chamber dimension is normal. 3. Left ventricular systolic function is normal, estimated at 60-65%. 4. The left ventricular diastolic function is grade I diastolic dysfunction. 5. E/e' 11 is mildly elevated. 6. There is mild mitral valve regurgitation. 7. There is trace tricuspid valve regurgitation. 8. No pulmonary hypertension, estimated pulmonary arterial systolic pressure is 23 mmHg. Left Ventricle E/e' 11 is mildly elevated. Left ventricular chamber dimension is normal. Left ventricular systolic function is normal, estimated at 60-65%. The left ventricular diastolic function is grade I diastolic dysfunction. Right Ventricle Right ventricular systolic function is normal and with normal TAPSE 2.7 cm. Right ventricular chamber dimension is normal. Left Atria Left atrial chamber dimension is normal. Right Atria Right atrial chamber dimension is normal. Aortic Valve The aortic valve is trileaflet. There is no aortic valve stenosis. There is no aortic valve regurgitation. Pulmonic Valve There is no pulmonic regurgitation. Mitral Valve There is no mitral valve stenosis. There is mild mitral valve regurgitation. Tricuspid Valve There is trace tricuspid valve regurgitation. No pulmonary hypertension, estimated pulmonary arterial systolic pressure is 23 mmHg. Pericardium/Pleural There is no pericardial effusion. Inferior Vena Cava Normal inferior vena cava with >50% collapse upon inspiration consistent with normal right atrial pressure, 5 mmHg. Aorta The aortic root size at the sinus of Valsalva is normal. Left Ventricular Outflow Tract Name Value Normal LVOT 2D LVOT Diameter 2.1 cm LVOT Doppler LVOT Peak Velocity 114 cm/s LVOT Peak Gradient 5 mmHg LVOT Mean Gradient 4 mmHg LVOT VTI 30 cm LVOT VTI/AV VTI Ratio 1.1 LVOT Stroke Volume 102 ml Pulmonic Valve Name Value Normal RVOT Doppler RVOT Peak Gradient 3 mmHg PV Doppler
== END 2023-08-20 13:07 | disposition home or self-care (01) ==
LOC: CHSIMG 13:08
PROVIDERS: PCP Family Medicine; Visit Provider Family Medicine
DX: Z12.31 Encounter for screening mammogram for malignant neoplasm of breast (principal); I50.9 Heart failure, unspecified; I34.0 Nonrheumatic mitral (valve) insufficiency
CPT/HCPCS: 77063; 77067; 93306

== ENCOUNTER 2023-11-13 09:27 | Outpatient (CLI) | payer MEDICARE, SELFPAY ==
[2023-11-13 09:48] LABS: Basophils Absolute Auto 0.05 K/mm3 (0.00-0.10); Basophils Percent Auto 0.7 % (0.0-1.0); Eosinophils Absolute Auto 0.17 K/mm3 (0.02-0.50); Eosinophils Percent Auto 2.3 % (1.0-6.0); Hematocrit 42.9 % (35.0-42.0); Hemoglobin 14.7 g/dL (11.7-13.8); Immature Granulocyte Absolute 0.04 K/mm3 (0.00-0.00); Immature Granulocyte Percent A 0.5 % (0.0-0.0); Lymphocytes Absolute Auto 1.28 K/mm3 (1.10-4.50); Lymphocytes Percent Auto 17.4 % (18.0-42.0); Mean Corpuscular HGB Conc 34.3 g/dL (32-36); Mean Corpuscular Hemoglobin 29.1 pg (27.0-31.0); Monocytes Absolute Auto 0.37 K/mm3 (0.10-0.90); Neutrophils Absolute Auto 5.43 K/mm3 (1.70-7.20); Neutrophils Percent Auto 74.1 % (50.0-70.0); Platelet Count Result 307 K/mm3 (150-420); Red Blood Count 5.05 M/mm3 (4.20-5.40); Red Cell Distribution Width 13.1 % (11.6-14.4); White Blood Count 7.3 K/mm3 (4.8-10.8)
[2023-11-13 09:57] LABS: Hemoglobin A1C 8.3 % (<5.7)
[2023-11-13 10:19] LABS: Alanine Aminotransferase 65 U/L (14-59); Albumin Level 3.8 g/dL (3.4-5.0); Alkaline Phosphatase 151 U/L (46-116); Anion Gap 10 mmol/L (4-12); Aspartate Amino Transferase 34 U/L (15-37); Bilirubin,Total 0.4 mg/dL (0.00-1.00); Blood Urea Nitrogen 11 mg/dL (7-18); Calcium 9.6 mg/dL (8.5-10.1); Carbon Dioxide 28 mmol/L (21-32); Chloride 100 mmol/L (98-108); Cholesterol 194 mg/dL (0-200); Estimated Glomerular Filt Rate 49; Glucose 165 mg/dL (70-99); HDL Direct 50 mg/dL (40-60); LDL Cholesterol Calculated 96 mg/dL (<130); Osmolality Calculated 289 mOsm/kg (285-295); Potassium 3.8 mmol/L (3.5-5.1); Sodium 138 mmol/L (136-145); Total Protein 7.1 g/dL (6.4-8.2); Triglycerides 240 mg/dL (0-150)
== END 2023-11-13 09:28 | disposition home or self-care (01) ==
LOC: CHSLAB 09:28
PROVIDERS: PCP Family Medicine; Visit Provider Family Medicine
DX: N18.32 Chronic kidney disease, stage 3b (principal); E11.9 Type 2 diabetes mellitus without complications; D64.9 Anemia, unspecified
CPT/HCPCS: 36415; 80053; 80061; 83036; 85025

== ENCOUNTER 2024-03-04 10:41 | Outpatient (CLI) | payer MEDICARE, SELFPAY ==
[2024-03-04 11:03] LABS: Add Urine Microscopic? YES; Appearance Urine Clear (Clear); Bilirubin Urine Negative (Negative); Blood Urine Negative (Negative); Color Urine Light Yellow (Yellow); Glucose Urine UA Negative (Negative); Ketones Urine Negative (Negative); Leukocyte Esterase Ur Trace LEU/UL (Negative); Nitrate Urine Negative (Negative); Protein Urine Negative (Negative); Urobilinogen Urine 0.2 mg/dL (0.2-1.0)
[2024-03-04 11:08] LABS: Bacteria Urine Rare /hpf; RBC Urine None seen /hpf (0-2); Squamous Epithelial Cell Urine Rare /hpf (Few); WBC Urine 0-3 /hpf (0-3)
[2024-03-04 11:09] LABS: Hemoglobin A1C 5.6 % (<5.7)
[2024-03-04 11:13] LABS: Creatinine Urine 67.56 mg/dL (40-278); MALB Creatinine Ratio 23.5 mg/g (0-30); Microalbumin Urine Random 15.9 mg/L
[2024-03-04 11:46] LABS: Alanine Aminotransferase 64 U/L (14-59); Albumin Level 3.9 g/dL (3.4-5.0); Alkaline Phosphatase 147 U/L (46-116); Anion Gap 10 mmol/L (4-12); Aspartate Amino Transferase 45 U/L (15-37); Bilirubin,Total 0.4 mg/dL (0.00-1.00); Blood Urea Nitrogen 28 mg/dL (7-18); Carbon Dioxide 24 mmol/L (21-32); Chloride 101 mmol/L (98-108); Estimated Glomerular Filt Rate 39; Glucose 65 mg/dL (70-99); Osmolality Calculated 283 mOsm/kg (285-295); Potassium 4.3 mmol/L (3.5-5.1); Sodium 135 mmol/L (136-145)
== END 2024-03-04 10:42 | disposition home or self-care (01) ==
PROVIDERS: PCP Family Medicine; Visit Provider Nurse Practitioner Family
DX: R39.9 Unspecified symptoms and signs involving the genitourinary system (principal); E11.9 Type 2 diabetes mellitus without complications; R74.8 Abnormal levels of other serum enzymes
CPT/HCPCS: 36415; 80053; 81001; 82043; 83036

== ENCOUNTER 2024-04-08 10:55 | Outpatient (CLI) | payer MEDICARE, SELFPAY ==
[2024-04-08 12:10] LABS: Alanine Aminotransferase 54 U/L (14-59); Albumin Level 3.8 g/dL (3.4-5.0); Alkaline Phosphatase 135 U/L (46-116); Anion Gap 11 mmol/L (4-12); Aspartate Amino Transferase 29 U/L (15-37); Bilirubin,Total 0.4 mg/dL (0.00-1.00); Blood Urea Nitrogen 23 mg/dL (7-18); Carbon Dioxide 28 mmol/L (21-32); Chloride 103 mmol/L (98-108); Estimated Glomerular Filt Rate 40; Glucose 61 mg/dL (70-99); Osmolality Calculated 295 mOsm/kg (285-295); Potassium 3.9 mmol/L (3.5-5.1); Sodium 142 mmol/L (136-145); Total Protein 6.9 g/dL (6.4-8.2)
== END 2024-04-08 10:56 | disposition home or self-care (01) ==
PROVIDERS: PCP Family Medicine; Visit Provider Nurse Practitioner Family
DX: R74.8 Abnormal levels of other serum enzymes (principal); E87.8 Other disorders of electrolyte and fluid balance, not elsewhere classified
CPT/HCPCS: 36415; 80053

== ENCOUNTER 2024-07-07 10:48 | Outpatient (CLI) | payer MEDICARE, SELFPAY ==
--- NOTE | ~2024-07-07 | XR_ITS ---
Left foot Technique: AP, oblique, and lateral views were obtained. Clinical History: Pain Findings: No acute fracture or dislocation is seen. Osseous alignment is anatomic. Joint spaces are p reserved without erosive or degenerative change. There is prominent enthesopathic change and heteroto pic ossification at the distal Achilles insertion region. Plantar calcaneal spur present. Impression: No acute abnormality. Chronic findings at the heel, as above. Reviewed, dictated and finalized at location M. F PLATE MAKER Impression: No acute abnormality. Chronic findings at the heel, as above.
--- OUTSIDE RECORDS SUMMARY | 2024-07-07 11:44 | XMS_ITS | Clinical Summary ---
Author Organization [facility] Address [address] [address] Phone Care Team Providers Care Slurry Tank Tender Name Role Phone Unavailable Primary Care Provider Unavailabl e Medications Medication Sig Dispensed Refills Start Date End Date Status lisinopril (PRINIVIL,ZESTRIL) 20 MG tablet 1 tab/cap qday 0 07/25/2016 Active glimepiride (AMARYL) 4 MG tablet 1 tab/cap qday 0 07/25/2016 Active atorvastatin (LIPITOR) 40 MG tablet 1 tab/cap qday 0 07/25/2016 Active Canagliflozin (INVOKANA) 100 MG tablet 1 tab/cap qday 0 07/25/2016 Active Active Problems Problem Noted Date Diagnosed Date Chronic kidney disease, stage 3 (moderate) 07/25 Hypertensive chronic kidney disease with stage 1 through stage 4 chronic kidney disease, or unspecified chronic kidney disease 07/25/2016 Type 2 diabetes mellitus wit h other diabetic kidney complication 07/25/2016 Other hyperlipidemia 07/25/2016 Overview (08/10/2018): Converted unresolved ICD9, potential mismatch. Family History Medical History Relation Comments Cerebrovascular accident Mother Diabetes mellitus Mother Heart disease Mother Hypertensive disorder Mother Kidney disease Neg Hx Kidney stone Neg Hx Relation Status Comments Mother Social History Tobacco Use Types Packs/Day Years Used Date Smoking Tobacco: Never Assessed Sex and Gender Information Value Date Recorded Sex Assigned at Not on file Gender Identity Not on file Sexual Orientation Not on file Last Filed Vital Signs Vital Sign Reading Time Taken Comments Blood Pressure 138/70 09/18/2016 12:01 AM CDT Sitting, Right Pulse - - Temperature 35.9 C (96.7 F) 09/18/2016 12:01 AM CDT Respiratory Rate - - Oxygen Saturation - - Inhaled Oxygen Concentration - - Weight 79.4 kg (175 lb) 09/18/2016 12:0 1 AM CDT Height 149.9 cm (4' 11 ) 09/18/2016 12: 01 AM CDT Body Mass Index 35.35 09/18/2016 12:01 AM CDT Plan of Treatment Not on file
--- OUTSIDE RECORDS SUMMARY | 2024-07-07 11:44 | XMS_ITS | Clinical Summary ---
Author Organization [facility] Address [facility] [place] [address] Care Team Providers Care Informatics Physician Name Role Phone Unavailable Primary Care Provider Unavailabl e Social History Tobacco Use Types Packs/Day Years Used Date Smoking Tobacco: Never Comments Unknown Sex and Gender Information Value Date Recorded Sex Assigned at Not on file Legal Sex Female 8:45 PM CDT Gender Identity Not on file Sexual Orientation Not on file Last Filed Vital Signs Vital Sign Reading Time Taken Comments Blood Pressure 118/72 02/28/2010 9:18 AM CDT Pulse 64 02/28/2010 9:18 AM CDT Temperature - - Respiratory Rate 18 02/28/2010 9:18 AM CDT Oxygen Saturation - - Inhaled Oxygen Concentration - - Weight 82.6 kg (182 lb) 02/28/2010 9:18 AM CDT Height 157.5 cm (5' 2 ) 02/28/2010 9:18 AM CDT Body Mass Index 33.29 02/28/2010 9:18 AM CDT Plan of Treatment Health Maintenance Due Date Last Done Comments Hepatitis C 1963 Zoster Vaccines (1 of 2) 1996 Dexa Scan (General) 08/01/2011 RSV Immunization or 60+ Years (1 - 1-dose 75+ series) 2021 COVID-19 Vaccine ( - 2023-2 5 season) 2024 07/20/2020, 06/29/2020 Influenza Adult (#1) 2024 DTaP, Tdap and Td Vaccines ( 3 - Td or Tdap) 12/06/2030 12/06/2020, 11/30/2010 Pneumococcal Vaccine: 65+ Years Completed 12/06/2020, 03/04/2015, 07/22/2012 Meningococcal B Vaccine Aged Out No l onger eligible based on patient's age to complete this topic Meningococcal Vaccine Aged Out No john edny eligible based on patient's age to complete this topic RSV Immunizations Under 20 Months Aged Out No longer eligible b ased on patient's age to complete this topic
== END 2024-07-07 10:49 | disposition home or self-care (01) ==
LOC: CHSIMG 10:51
PROVIDERS: PCP Family Medicine; Visit Provider Family Medicine
DX: M79.672 Pain in left foot (principal)
CPT/HCPCS: 73630

== ENCOUNTER 2024-07-31 09:52 | Outpatient (CLI) | payer MEDICARE, SELFPAY ==
--- NOTE | ~2024-07-31 | XR_ITS ---
XR foot RT min 3V Ordering provider: See Skinner DO History: . LATERAL RT FOOT PAIN,CHRONIC,NKI . Comparison: None. FINDINGS: BONES: No acute fracture or dislocation. JOINT SPACES: Osteoarthritic changes of the first metatarsophalangeal joint. Narrowing of the proxima l and distal interphalangeal joints. No tarsal coalition. SOFT TISSUES: Ossification of the insertion of the tendo Achilles. Calcaneal spur. IMPRESSION: No acute osseous abnormality of the right foot. Polyarticular osteoarthritic changes. Reviewed, dictated and finalized at location A. S CLEANER
--- OUTSIDE RECORDS SUMMARY | 2024-07-31 11:07 | XMS_ITS | Clinical Summary ---
Author Organization [facility] Address [facility] [place] [address] Care Team Providers Care Patient Services Rep Name Role Phone Unavailable Primary Care Provider [...] topic Meningococcal Vaccine Aged Out No john deny eligible based on patient's age to complete this topic RSV Immunizations Under 20 Months Aged Out No longer eligible b ased on patient's age to complete this topic
--- OUTSIDE RECORDS SUMMARY | 2024-07-31 11:07 | XMS_ITS | Clinical Summary ---
Author Organization [facility] Address [address] [address] Phone Care Team Providers Care Migration Agent Name Role Phone Unavailable Primary Care Provider [...]
== END 2024-07-31 09:53 | disposition home or self-care (01) ==
LOC: CHSLAB 09:53
PROVIDERS: PCP Family Medicine; Visit Provider Family Medicine
DX: M79.671 Pain in right foot (principal); M19.071 Primary osteoarthritis, right ankle and foot
CPT/HCPCS: 73630

== ENCOUNTER 2024-08-21 08:12 | Outpatient (CLI) | payer MEDICARE, SELFPAY ==
--- NOTE | ~2024-08-21 | MM_ITS ---
EXAMINATION: MM screening [facility] BI w emilia HISTORY: Screening TECHNIQUE: Craniocaudal and mediolateral oblique 3-D tomosynthesis images were obtained and synthetic 2-D images were generated. CAD analysis was submitted and interpreted. COMPARISON: 08/20/2023 and dating back to 06/28/2020 BREAST PARENCHYMAL COMPOSITION: There are scattered areas of fibroglandular density. FINDINGS: Microclip within the lower inner left breast, consistent with patient's history. Punctate calcifications detected bilaterally, stable and benign in appearance, dermal in origin. Stable parenchymal pattern without suspicious microcalcifications, architectural distortion, discrete masses or significant asymmetry. IMPRESSION: 1. No mammographic evidence of malignancy. 2. Recommend routine screening mammography in one year. BI-RADS Category 2: Benign finding(s). Reviewed, dictated and finalized at location A.
--- OUTSIDE RECORDS SUMMARY | 2024-08-21 08:19 | XMS_ITS | Clinical Summary ---
Author Organization [facility] Address [facility] [place] [address] Care Team Providers Care Manager Chinese Name Role Phone Unavailable Primary Care Provider [...]
--- OUTSIDE RECORDS SUMMARY | 2024-08-21 08:19 | XMS_ITS | Clinical Summary ---
Author Organization [facility] Address [address] [address] Phone Care Team Providers Care Cupola Tender Helper Name Role Phone Unavailable Primary Care Provider [...]
== END 2024-08-21 08:13 | disposition home or self-care (01) ==
LOC: CHSIMG 08:13
PROVIDERS: PCP Family Medicine; Visit Provider Family Medicine
DX: Z12.31 Encounter for screening mammogram for malignant neoplasm of breast (principal)
CPT/HCPCS: 77063; 77067

== ENCOUNTER 2024-11-05 09:01 | Outpatient (CLI) | payer MEDICARE, OTHER, SELFPAY ==
--- NOTE | ~2024-11-05 | XR_ITS ---
AP view of the pelvis and AP and lateral views of the left hip Clinical history: Pain Findings: No acute fracture or dislocation is seen. Left hip arthroplasty in place. No hardware convo cation evident.. Soft tissues are unremarkable. Impression: No acute abnormality. Left hip arthroplasty. Reviewed, dictated and finalized at location . Impression: No acute abnormality. Left hip arthroplasty.
[2024-11-05 09:40] LABS: Basophils Absolute Auto 0.05 K/mm3 (0.00-0.10); Basophils Percent Auto 0.7 % (0.0-1.0); Eosinophils Absolute Auto 0.32 K/mm3 (0.02-0.50); Eosinophils Percent Auto 4.5 % (1.0-6.0); Hematocrit 42.5 % (35.0-42.0); Immature Granulocyte Absolute 0.02 K/mm3 (0.00-0.00); Immature Granulocyte Percent A 0.3 % (0.0-0.0); Lymphocytes Absolute Auto 1.16 K/mm3 (1.10-4.50); Lymphocytes Percent Auto 16.2 % (18.0-42.0); Mean Corpuscular HGB Conc 32.9 g/dL (32-36); Mean Corpuscular Hemoglobin 28.5 pg (27.0-31.0); Mean Corpuscular Volume 86.4 fL (78.0-102.0); Mean Platelet Volume 9.5 fl (9.2-11.8); Monocytes Absolute Auto 0.35 K/mm3 (0.10-0.90); Monocytes Percent Auto 4.9 % (2.0-11.0); Neutrophils Absolute Auto 5.26 K/mm3 (1.70-7.20); Neutrophils Percent Auto 73.4 % (50.0-70.0); Platelet Count Result 330 K/mm3 (150-420); Red Blood Count 4.92 M/mm3 (4.20-5.40); Red Cell Distribution Width 13.2 % (11.6-14.4); White Blood Count 7.2 K/mm3 (4.8-10.8)
--- OUTSIDE RECORDS SUMMARY | 2024-11-05 09:41 | XMS_ITS | Clinical Summary ---
Author Organization [facility] Address [address] [address] Phone Care Team Providers Care Hadoop Administrator Name Role Phone Unavailable Primary Care Provider Unavailabl e Medications lisinopril (PRINIVIL,ZESTRI L) 20 MG tablet 1 tab/cap qday 0 [...] Years Used Date Smoking Tobacco: Never Assessed Comments Unknown Sex and Gender Information Value Date Recorded Sex Assigned at Not on file Legal Sex Female 9:08 AM MST Gender Identity Not on file Sexual Orientation [...] 1 AM CDT Height 149.9 cm (4' 11) 09/18/2016 12: 01 AM CDT Body Mass Index 35.35 09/18/2016 12:01 AM CDT Plan of Treatment Not on file
[2024-11-05 09:45] LABS: Creatinine Urine 159.8 mg/dL
[2024-11-05 09:50] LABS: MALB Creatinine Ratio 16.8 mg/g (0-30); Microalbumin Urine Random 26.9 mg/L (0-16.7)
[2024-11-05 11:10] LABS: Alanine Aminotransferase 30 U/L (6-35); Albumin Level 4.6 g/dL (3.5-5.1); Alkaline Phosphatase 94 U/L (38-126); Anion Gap 6 mmol/L (4-12); Aspartate Amino Transferase 33 U/L (14-36); Bilirubin,Total 0.4 mg/dL (0.2-1.3); Blood Urea Nitrogen 23 mg/dL (7-17); Calcium 10.2 mg/dL (8.4-10.2); Carbon Dioxide 25 mmol/L (22-30); Chloride 105 mmol/L (98-107); Cholesterol 204 mg/dL (0-200); Estimated Glomerular Filt Rate 45; Glucose 111 mg/dL (65-110); HDL Direct 52 mg/dL; LDL Cholesterol Calculated 109 mg/dL (<130); Osmolality Calculated 286 mOsm/kg (285-295); Potassium 4.7 mmol/L (3.4-5.0); Sodium 136 mmol/L (137-145); Total Protein 6.8 g/dL (6.3-8.2); Triglycerides 216 mg/dL (<150)
== END 2024-11-05 09:02 | disposition home or self-care (01) ==
LOC: CHSLAB 09:05
PROVIDERS: PCP Family Medicine; Visit Provider Family Medicine
DX: E11.9 Type 2 diabetes mellitus without complications (principal); N18.32 Chronic kidney disease, stage 3b; M25.552 Pain in left hip; Z96.642 Presence of left artificial hip joint
CPT/HCPCS: 36415; 73502; 80053; 80061; 82043; 85025

== ENCOUNTER 2024-11-18 13:36 | Outpatient (CLI) | payer MEDICARE, OTHER, SELFPAY ==
--- NOTE | ~2024-11-18 | CT_ITS ---
EXAMINATION: CT hip LT wo con DATE: 11/18/2024 13:59 INDICATION: Left hip pain TECHNIQUE: High resolution computed tomography (CT) of the left hip was performed without intravenous contrast. Additional sagittal and coronal reconstructions were performed. Automated exposure control and iterative reconstruction technique were employed. The dose-length product was 418.67 mGy-cm. COMPARISON: None FINDINGS: Noncemented left total hip arthroplasty which is in near-anatomic alignment with no periprosthetic drake cency to suggest loosening or infection. No fracture. Moderate osteoarthritis at the left sacroiliac joint. Mild osteitis pubis. Severe disc height loss with vacuum phenomena at the visualized portion o f L5-S1. No left hip joint effusion or other abnormal fluid collections. There is an intramuscular li christie within the anterior abdominal wall musculature along the left anterior iliac spine. Several dive rticula along the visualized distal descending and sigmoid colon without adjacent inflammatory change to suggest diverticular colitis. Bladder is normal. No free fluid in the pelvis. No pathologically e nlarged left pelvic or inguinal lymphadenopathy. IMPRESSION: 1. Expected appearance of a noncemented left total hip arthroplasty with no evident loosening, acute osseous abnormality or joint effusion. 2. Additional degenerative skeletal changes including severe lumbosacral spondylosis, moderate left s acroiliac osteoarthritis and mild osteitis pubis. Reviewed, dictated and finalized at location A. IMPRESSION: 1. Expected appearance of a noncemented left total hip arthroplasty with no briana dent loosening, acute osseous abnormality or joint effusion. 2. Additional degenerative skeletal changes including severe lumbosacral spondy losis, moderate left sacroiliac osteoarthritis and mild osteitis pubis.
== END 2024-11-18 13:37 | disposition home or self-care (01) ==
PROVIDERS: PCP Family Medicine; Visit Provider Family Medicine
DX: M16.12 Unilateral primary osteoarthritis, left hip (principal); Z96.642 Presence of left artificial hip joint; M43.06 Spondylolysis, lumbar region; M47.898 Other spondylosis, sacral and sacrococcygeal region; M86.8X8 Other osteomyelitis, other site
CPT/HCPCS: 73700